=== PATIENT | female | born 1940 | race Caucasian/White ===

== ENCOUNTER 2021-08-25 15:28 | Inpatient (IN) | payer MEDICARE, SELFPAY ==
[2021-08-25 15:50] VITALS: BMI 41.0; BMI 41.7
[2021-08-25 16:00] VITALS: BP 173/82; RESP 22; TEMP 36.8; O2SAT 91; O2SAT 96
--- NOTE | 2021-08-25 16:24 | XR_ITS ---
PROCEDURE INFORMATION: Exam: XR Chest Exam date and time: 08/25/2021 4:50 PM Age: 81 years old Clinical indication: Condition or disease; Prior surgery; Surgery date: 6+ months; Surgery type: Open heart SX in 2007; Patient HX: PT diagnosed with covid today; Additional info: Cp TECHNIQUE: Imaging protocol: Radiologic exam of the chest. Views: 1 view. COMPARISON: No relevant prior studies available. FINDINGS: Lungs: Mild peribronchial thickening demonstrated at the left lung base. Findings compatible with left lower lobe bronchitis. Patchy right greater than left bibasilar infiltrates. Pleural spaces: Unremarkable. No pleural effusion. No pneumothorax. Heart/Mediastinum: Unremarkable. No cardiomegaly. Bones/joints: Unremarkable. IMPRESSION: 1. Patchy right greater than left bibasilar infiltrates. 2. Findings compatible with left lower lobe bronchitis.
--- NOTE | 2021-08-25 16:36 | P.CONPHA_ITS ---
[facility] Pharmacy Heparin Dosing - Demographic Data Admission date:: 08/25/21 Date: 08/25/21 Time: 16:36 Allergies/Adverse Reactions: Allergies Allergy/AdvReac Type Severity Reaction Status Date / Time linezolid [From Zyvox] Allergy Verified 08/25/21 15:56 Penicillins Allergy Verified 08/25/21 15:56 Height: 1.63 m Weight: 110.223 kg - Indication Medication therapy:: Heparin Patient Problems: Current Active Problems Non-STEMI (non-ST elevated myocardial infarction) (Acute) COVID-19 (Acute) CHF (congestive heart failure) (Acute) Obesity (Acute) Diabetes (Acute) CVA?: No Bleeding problem?: No Kidney disease?: No DE?: Yes Desired PTT range:: 50-70 seconds - Monitoring Dose Monitor 1 Date: 08/25/21 Time: 16:37 PTT Result:: PTT 56.7 Infusion Rate:: STARTING AT 1000 UNITS/HR. IV DRIP ALREADY RUNNING FROM [facility]. NO BOLUS GIVEN UNTIL PTT COMES BACK. Dose Monitor 2 Date: 08/25/21 Time: 19:20 PTT Result:: PTT 46.8 Infusion Rate:: HEPARIN 3000 UNIT BOLUS GIVEN AND DOSE INCREASED TO 1200 UNITS/HR. Dose Monitor 3 Date: 08/26/21 Time: 02:05 PTT Result:: PTT 99.0 Infusion Rate:: DOSE DECREASED TO 900 UNITS/HR. Comment:: DRIP STOPPED AT 0404 DUE TO GI BLEED. - Core Measures Is INR > or = 2 at discharge?: No Most Recent Labs:: D Were Heparin and Warfarin started on the same day?: No
[2021-08-25 16:52] LABS: Influenza A, PCR Not Detected (NotDetected); Influenza B, PCR Not Detected (NotDetected)
[2021-08-25 16:57] LABS: Basophils % 0.8 % (0.1-2.0); Eosinophils % 0.1 % (0.1-12.0); Hematocrit 38.2 % (37.0-47.0); Lymphocytes # 0.3 K/mm3 (0.7-4.5); Mean Corpuscular HGB Conc 31.5 g/dL (31.8-35.4); Mean Corpuscular Hemoglobin 30.9 pg (27.0-31.2); Monocytes # 0.1 K/mm3 (0.1-1.0); Monocytes % 1.6 % (1.7-9.3); Neutrophils # 4.2 K/mm3 (1.8-7.8); Neutrophils % 91.4 % (37.0-80.0); Platelet Count 124 K/mm3 (142-424); Red Cell Distribution Width 15.3 % (11.5-17.5); White Blood Count 4.6 K/mm3 (4.8-10.8)
[2021-08-25 17:04] LABS: MANUAL DIFFERENTIAL MANUAL DIFFERENTIAL (MANUAL DIFF)
[2021-08-25 17:07] LABS: Chloride 106 mmol/L (98-107); Potassium 4.6 mmoL/L (3.5-5.1); Sodium 138 mmol/L (136-145)
[2021-08-25 17:10] LABS: Alanine Aminotransferase 22 U/L (12-78); Alkaline Phosphatase 67 U/L (38-126); Aspartate Amino Transferase 34 U/L (14-36); Bilirubin,Total 0.4 mg/dl (0.2-1.3); Blood Urea Nitrogen 23 mg/dl (7-17); Creatinine Clearance Estimated 31 mL/min (50-200); Estimated Glomerular Filt Rate 43 ml/min (>60); GFR (African American) 52 ML/MIN (>60); INR 1.05 (0.9-1.1); Lactic Acid 1.6 mmol/L (0.7-2.1); PTT Heparin (inpatient only) 56.7 Seconds (23.6-34.0); Prothrombin Time 11.8 seconds (10.1-12.5); Total Protein,Serum 7.1 g/dl (6.3-8.2)
[2021-08-25 17:11] LABS: Calcium 9.2 mg/dl (8.4-10.2); Glucose 225 mg/dl (74-100)
[2021-08-25 17:32] LABS: Troponin I 0.59 ng/ml (0.00-0.034)
--- NOTE | 2021-08-25 17:33 | PC.NURSE ---
1732-notified of critical troponin. verified name, and room number 1733- notified MD Gonzalez, make pt NPO after midnight. And notify him if pt experiences any further chest pain.
[2021-08-25 17:40] LABS: Coronavirus 19, PCR Detected (NotDetected)
--- NOTE | 2021-08-25 17:40 | PC.NURSE ---
Spoke to night watch regarding pt's PTT level for Heparin gtt. No changes.
[2021-08-25 17:44] LABS: Lymphocytes % 9 % (10-50); Monocytes % 1 % (2-9); Neutrophils % 90 % (42-76); Platelet Estimate Normal; RBC Morphology Normal; Total Cells Counted 100
--- NOTE | 2021-08-25 17:49 | ECG_ITS ---
APPROVED REPORT Exam: Resting ECG HR:83 bpm ECG Measurements Heart Rate 83 AXES CO 185 P 55 QRSd 176 QRS -66 QT 403 T 94 QTc 443 Conclusion SINUS RHYTHM LEFT AXIS DEVIATION [QRS AXIS < -30] LEFT BUNDLE BRANCH BLOCK [120+ ms QRS DURATION, 80+ ms Q/S IN V1/V2, 85+ ms R IN I/aVL/V5/V6] ABNORMAL ECG UNCONFIRMED REPORT Electronically signed by : Ramón Hanson MD 08/27/2021 16:27:15
[2021-08-25 17:54] LABS: Albumin Level 3.8 g/dl (3.5-5.0); Albumin/Globulin Ratio 1.2 (1.1-1.8); Anion Gap 11.6 mEq/L (5-15); Carbon Dioxide 25 mmol/L (22.0-30.0); Globulin 3.3 g/dL (1.3-3.2)
[2021-08-25 18:00] VITALS: BP 140/63; RESP 22; O2SAT 91
[2021-08-25 19:41] LABS: PTT Heparin (inpatient only) 46.8 Seconds (23.6-34.0)
[2021-08-25 20:00] VITALS: BP 136/61; PULSE 89; PULSE 90; PULSE 93; RESP 20; TEMP 36.8; O2SAT 90; O2SAT 95
--- NOTE | 2021-08-25 20:20 | HMH.PHAINT ---
pharmacy nightwatch called with ptt result of 46.8; note orders received from alpa to give 3000 unit bolus and resume drip at 24ml/hr verifed with another RN, ptt to be rechecked in 6 hrs.
[2021-08-25 20:35] LABS: Troponin I 0.67 ng/ml (0.00-0.034)
--- NOTE | 2021-08-25 20:40 | PC.NURSE ---
dr lr called with troponin level 0.67; no new orders noted, stated to discontinue anymore troponin levels repeated and verified, lab notified as well.
[2021-08-25 22:00] VITALS: BP 138/61; PULSE 87; RESP 20; O2SAT 90
--- NOTE | 2021-08-25 22:30 | PC.NURSE ---
dr lr called for patient complaints of nausea and chronic back pain, pt states she takes oxycodone at home and asked that I call the doctor to get it ordered, dr lr states may resume home meds repeated and verified. may resume oxycodone 5mg at hs, may give zofran 4mg iv q6hrs prn nausea repeated and verified.
[2021-08-26] VITALS (14 sets, daily range): BP systolic 115–140; BP diastolic 43–63; PULSE 78–99; RESP 17–35; TEMP 36.7–36.9; O2SAT 92–97; BMI 40.1
--- NOTE | 2021-08-26 02:54 | HMH.PHAINT ---
0254 alpa with pharmacy nightwatch called with PTT results 99.0; note new orders to decrease heparin drip to 18ml/hr verified with another RN, see mar; repeat PTT in 6 hours.
--- NOTE | 2021-08-26 03:46 | PC.NURSE ---
0346 pt was up to bathroom with assistance of patient acute care occupational therapist and it was noted that pt had toilet full of bright red to red/brown blood in toilet with bowel movement, it was noted to be a moderate amount, dr rooney was notified in the emergency room and new order received to discontinue heparin drip at this time and he will notify dr. lr in the am repeated and verified.
--- NOTE | 2021-08-26 05:37 | PC.NURSE ---
pt rested some through the night, VSS, telemetry reveals sinus rythm with rate 79-89; 02 sats 96% on 02 at 3L; pt wears 2L at home; lung sounds clear and diminished, pt with h/o LIDIA lobectomy; pt had episode of br red to red/brown loose bowel movement and dr. Marcelo was notified, was a moderate amount, heparin drip stopped at this time. no complaints of chest pain with nitro drip infusing at 1.5mls/hr, pt a&o x4; VSS stable, no other issues or concerns at this time.
[2021-08-26 09:08] LABS: Basophils % 0.5 % (0.1-2.0); Eosinophils % 0.1 % (0.1-12.0); Hematocrit 36.5 % (37.0-47.0); Lymphocytes # 0.9 K/mm3 (0.7-4.5); Lymphocytes % 22.6 % (10-50); Mean Corpuscular HGB Conc 30.1 g/dL (31.8-35.4); Mean Corpuscular Hemoglobin 29.9 pg (27.0-31.2); Mean Corpuscular Volume 99.5 fl (81-99); Mean Platelet Volume 9.3 fl (7.4-10.4); Monocytes # 0.3 K/mm3 (0.1-1.0); Monocytes % 7.7 % (1.7-9.3); Neutrophils # 2.7 K/mm3 (1.8-7.8); Neutrophils % 69.1 % (37.0-80.0); Platelet Count 115 K/mm3 (142-424); Red Blood Count 3.67 M/mm3 (4.20-5.40); Red Cell Distribution Width 15.2 % (11.5-17.5); White Blood Count 3.8 K/mm3 (4.8-10.8)
[2021-08-26 09:11] LABS: PTT Heparin (inpatient only) 25.9 Seconds (23.6-34.0)
[2021-08-26 09:15] LABS: Alanine Aminotransferase 16 U/L (12-78); Albumin Level 3.1 g/dl (3.5-5.0); Albumin/Globulin Ratio 1.1 (1.1-1.8); Alkaline Phosphatase 51 U/L (38-126); Anion Gap 12.6 mEq/L (5-15); Aspartate Amino Transferase 28 U/L (14-36); Blood Urea Nitrogen 29 mg/dl (7-17); Calcium 8.6 mg/dl (8.4-10.2); Carbon Dioxide 22 mmol/L (22.0-30.0); Chloride 112 mmol/L (98-107); Creatinine Clearance Estimated 55 mL/min (50-200); Estimated Glomerular Filt Rate 39 ml/min (>60); GFR (African American) 47 ML/MIN (>60); Globulin 2.9 g/dL (1.3-3.2); Glucose 128 mg/dl (74-100); Potassium 4.6 mmoL/L (3.5-5.1); Sodium 142 mmol/L (136-145)
[2021-08-26 09:28] LABS: Bilirubin,Total < 0.1 mg/dl (0.2-1.3)
--- NOTE | 2021-08-26 09:31 | HMH.HP ---
*Admission Date: 08/25/21 *Chief complaint: sob *History of present illness: this patient had sob and cough over the last few days and presented to [facility] and was found to have covid-19 and nonstemi- pt with hx of cad s/p cabg in past and chf - pt has diabetes and has been compliant with meds - pt with sob and elevated card enz and element of chf plus covid-19 and was transfered to [facility] for care [facility] History I have reviewed the patient's past medical history: Yes Medical History: Reports:: Congestive Heart Failure, Diabetes Mellitus Type 2, Hyperlipidemia, Hypertension, Peripheral Vascular Disease *Have you ever received a pneumonia vaccine?: Yes *Have you received a flu vaccine this season?: Yes Other Medical History: Reports: Anemia, Arthritis, Cataracts, Glaucoma Other Surgeries: Yes: Cholecystectomy, Colonoscopy, EGD - *Social History Smoking Status: Former smoker Alcohol Intake: never *Occupational Status:: retired *Travel in the last 8 weeks: None Family Hx:: Unable to obtain Review of Systems - Review of Systems Review of systems:: pertinent systems reviewed and negative unless documented below - Constitutional Denies fever(s) - Eyes Denies change in vision - ENT Denies sore throat - *Cardiovascular Reports chest pain at rest, Reports shortness of breath - *Respiratory Reports cough, Reports shortness of breath, Denies coughing up blood - *Gastrointestinal Denies abdominal pain - *Genitourinary Denies painful urination, Denies blood in urine - *Musculoskeletal Denies joint pain - Integumentary/Breasts Denies rash - *Neurologic Denies localized weakness - Psychiatric Denies confusion Meds Home Medications Medication Instructions Recorded Confirmed Type Cholecalciferol (Vitamin D3) 5,000 unit PO DAILY 08/25/21 08/25/21 History [Vitamin D3] Furosemide [Furosemide 40MG tAB*] 40 mg PO DAILY 08/25/21 08/25/21 History Isosorbide Mononitrate [Imdur 60mg 60 mg PO DAILY 08/25/21 08/25/21 History ER tablet] Metformin HCl [Metformin 1000mg 1,000 mg PO DAILY 08/25/21 08/25/21 History Tablets] Oxycodone HCl [Oxycodone 5mg tab 5 mg PO HS 08/25/21 08/25/21 History (IR)] Pantoprazole Sodium [Protonix 40mg 40 mg PO BID 08/25/21 08/25/21 History tablet] Sacubitril/Valsartan [Entresto 24 1 each PO BID 08/25/21 08/25/21 History mg-26 mg Tablet] Sitagliptin Phosphate [Januvia 100 mg PO DAILY 08/25/21 08/25/21 History 100mg tablet] carvediloL [Carvedilol 6.25mg Tab] 6.25 mg PO BID 08/25/21 08/25/21 History cilostazoL [Pletal 100mg tablet] 100 mg PO DAILY 08/25/21 08/25/21 History methocarbamoL [Methocarbamol] 750 mg PO BID 08/25/21 08/25/21 History Allergies Allergy/AdvReac Type Severity Reaction Status Date / Time linezolid [From Zyvox] Allergy Verified 08/25/21 15:56 Penicillins Allergy Verified 08/25/21 15:56 Exam Vital signs and Labs for Last 24 Hours: Temp Pulse Resp BP Pulse Ox 98.1 F 81 25 H 138/54 L 96 08/26/21 08:00 08/26/21 08:00 08/26/21 08:00 08/26/21 08:00 08/26/21 08:00 Laboratory Results - last 24 hr 08/25/21 16:35: WBC 4.6 L, RBC 3.90 L, Hgb 12.0 L, Hct 38.2, MCV 98.0, MCH 30.9, MCHC 31.5 L, RDW 15.3, Plt Count 124 L, MPV 10.0, Neut % (Auto) 91.4 H, Lymph % (Auto) 6.0 L, [place] % (Auto) 1.6 L, Eos % (Auto) 0.1, Baso % (Auto) 0.8, Neut # (Auto) 4.2, Lymph # (Auto) 0.3 L, [place] # (Auto) 0.1, Eos # (Auto) 0.0, Baso # (Auto) 0.0, Total Counted 100, Neutrophils % (Manual) 90 H, Lymphocytes % (Manual) 9 L, Monocytes % (Manual) 1 L, Platelet Estimate Normal, RBC Morphology Normal 08/25/21 16:35: PT 11.8, INR 1.05, APTT 56.7 H* 08/25/21 16:35: Sodium 138, Potassium 4.6, Chloride 106, Carbon Dioxide 25, Anion Gap 11.6, BUN 23 H, Creatinine 1.20 H, Estimated Creat Clear 31, Estimated GFR 43 L, Est GFR ( Amer) 52 L, Glucose 225 H, Calcium 9.2, Total Bilirubin 0.4, AST 34, ALT 22, Alkaline Phosphatase 67, Troponin I 0.59 H, Total Pro
--- NOTE | 2021-08-26 09:42 | XR_ITS ---
PROCEDURE INFORMATION: Exam: XR Chest Exam date and time: 08/26/2021 9:59 AM Age: 81 years old Clinical indication: Shortness of breath; Additional info: Sob/covid-19/chf TECHNIQUE: Imaging protocol: Radiologic exam of the chest. Views: 1 view. COMPARISON: CR XR CHEST PORTABLE 08/25/2021 4:50 PM FINDINGS: Lungs: Persistent patchy infiltrative opacities greatest at the right lung base. Findings not significantly changed. Pleural spaces: Unremarkable. No pleural effusion. No pneumothorax. Heart/Mediastinum: Unremarkable. No cardiomegaly. Bones/joints: Unremarkable. IMPRESSION: Patchy interstitial opacities greatest at the right lung base. No significant interval change.
[2021-08-26 10:15] LABS: NT Pro Brain Natriuretic Pep. 4460 pg/mL (0-450)
[2021-08-26 10:22] LABS: T4 (Thyroxine) 6.7 ug/dl (5.53-11.0)
[2021-08-26 10:36] LABS: Thyroid Stimulating Hormone 1.29 uIU/mL (0.465-4.68)
--- NOTE | 2021-08-26 11:00 | HMH.PHAINT ---
MEDICATION RECONCILIATION COMPLETE USING LIST FROM [facility].
--- NOTE | 2021-08-26 11:01 | P.CONPHA_ITS ---
[facility] Pharmacy VTE Monitoring - Patient Demographics Admission date: 08/25/21 Report Date: 08/26/21 Time: 11:01 Allergies/Adverse Reactions: Patient Allergies linezolid [From Zyvox] Allergy (Verified 08/25/21 15:56) Penicillins Allergy (Verified 08/25/21 15:56) Height: 1.63 m Weight: 106.736 kg Patient Problems: Current Active Problems Non-STEMI (non-ST elevated myocardial infarction) (Acute) COVID-19 (Acute) CHF (congestive heart failure) (Acute) Obesity (Acute) Diabetes (Acute) - VTE Risk Labs: VTE Related Lab Results Hgb 11.0 g/dL (12.2-16.2) L 08/26/21 08:33 Hct 36.5 % (37.0-47.0) L 08/26/21 08:33 Plt Count 115 K/mm3 (142-424) L 08/26/21 08:33 PT 11.8 seconds (10.1-12.5) 08/25/21 16:35 INR 1.05 (0.9-1.1) 08/25/21 16:35 APTT 25.9 Seconds (23.6-34.0) 08/26/21 08:33 BUN 29 mg/dl (7-17) H D 08/26/21 08:33 Creatinine 1.30 mg/dl (0.52-1.04) H 08/26/21 08:33 Estimated Creat Clear 55 mL/min (50-200) 08/26/21 08:33 Was VTE Risk Assessment Performed: Yes VTE Score: 9 VTE Risk Level: Moderate Risk Clinical Trial Participant: No - Prophylaxis VTE Prophylaxis Ordered?: Yes Types of VTE Prophylaxis: TEDS Knee High Location of Applied Device: Refused
[2021-08-26 11:24] LABS: POC Glucose,Bedside 138 (70-110)
--- NOTE | 2021-08-26 18:14 | PC.NURSE ---
pt pleasant t/o shift, up to chair at bedside all day. alert X4. iv in R ac dc due to infiltration. iv in R hand patent with dilt drip @ 5mg. assist X1 to br. pt has had 2 bloody BM this shift. vss, NSR with evidence of bbb noted on tele. lungs clear and diminished, productive cough with clear sputum at this time. pt stated shes getting nervous about possible procedure on mon. questions/ concerns addressed. no c/o n/v/cp at this time. call velasquez within reach.
[2021-08-27] VITALS (15 sets, daily range): BP systolic 97–152; BP diastolic 39–57; PULSE 69–94; RESP 18–31; TEMP 36.7–37.1; O2SAT 90–99; BMI 40.6
--- NOTE | 2021-08-27 04:15 | PC.NURSE ---
Pt is alert and oriented x4, pt has been resting throughout shift, pt has complained of pain one time, treated per mar. Pt ambulated to bathroom assist x1. Pt O2 sat >90% 3L NC. Nitro is infusing at 5mcg/min. HR has been 78-93. Tele has shown [place] throughout shift. SBP 120-156.
[2021-08-27 08:24] LABS: Alanine Aminotransferase 16 U/L (12-78); Albumin Level 3.2 g/dl (3.5-5.0); Albumin/Globulin Ratio 1.1 (1.1-1.8); Alkaline Phosphatase 46 U/L (38-126); Anion Gap 10.7 mEq/L (5-15); Aspartate Amino Transferase 36 U/L (14-36); Blood Urea Nitrogen 30 mg/dl (7-17); Calcium 8.3 mg/dl (8.4-10.2); Carbon Dioxide 25 mmol/L (22.0-30.0); Chloride 109 mmol/L (98-107); Creatinine Clearance Estimated 61 mL/min (50-200); Estimated Glomerular Filt Rate 43 ml/min (>60); GFR (African American) 52 ML/MIN (>60); Globulin 2.9 g/dL (1.3-3.2); Glucose 175 mg/dl (74-100); Potassium 4.7 mmoL/L (3.5-5.1); Sodium 140 mmol/L (136-145); Total Protein,Serum 6.1 g/dl (6.3-8.2)
[2021-08-27 08:26] LABS: Bilirubin,Total < 0.1 mg/dl (0.2-1.3)
--- NOTE | 2021-08-27 09:41 | P.PN_ITS ---
Internal Medicine - PN: Subj *Date: 08/28/21 *Time: 04:31 Interval history: doing ok with no chest pain - no bleeding Exam Vital signs and Labs for Last 24 Hours: Temp Pulse Resp BP Pulse Ox 98.7 F 94 H 18 129/51 L 96 08/27/21 04:00 08/27/21 08:00 08/27/21 08:00 08/27/21 08:00 08/27/21 08:00 Laboratory Results - last 24 hr 08/26/21 08:33: NT-Pro-B Natriuret Pep 4460 H, TSH 1.29, Thyroxine (T4) 6.7 08/26/21 11:13: POC Glucose 138 H 08/27/21 07:50: Sodium 140, Potassium 4.7, Chloride 109 H, Carbon Dioxide 25, Anion Gap 10.7, BUN 30 H, Creatinine 1.20 H, Estimated Creat Clear 61, Estimated GFR 43 L, Est GFR ( Amer) 52 L, Glucose 175 H D, Calcium 8.3 L, Total Bilirubin < 0.1 L, AST 36 D, ALT 16, Alkaline Phosphatase 46, Total Protein 6.1 L, Albumin 3.2 L, Globulin 2.9, Albumin/Globulin Ratio 1.1 I & O for Last 24 hours: Intake & Output 08/24/21 08/25/21 08/26/21 08/27/21 11:59 11:59 11:59 11:59 Intake Total 1090 / 1090 513 / 513 Output Total 0 / 0 Balance 1090 / 1090 513 / 513 Weight 235 lb 5 oz 238 lb 3 oz - Constitutional no acute distress, obese - *Routine HEENT Exam Head: Present: normocephalic Eye: Present: EOMI, PERRL ENT: Present: mucous membranes dry - *Routine Neck Exam Absent: JVD - *Routine Respiratory Exam Present: decreased breath sounds - *Routine Cardiovascular Exam Present: RRR, murmur, S4 - *Routine Abdominal Exam Present: soft - *Routine Extremities Exam Absent: calf tenderness - *Routine Skin Exam Present: intact - *Routine Neurological Exam Present: alert, CN II-XII intact - Routine Psychiatric Exam Present: cooperative Assessment and Plan (1) Non-STEMI (non-ST elevated myocardial infarction) Status: Acute Category: Medical Code(s): I21.4 - Non-ST elevation (NSTEMI) myocardial infarction (2) COVID-19 Status: Acute Category: Medical Code(s): U07.1 - COVID-19 (3) CHF (congestive heart failure) Status: Acute Qualifiers: Heart failure type: unspecified Heart failure chronicity: acute on chronic Qualified Code(s): I50.9 - Heart failure, unspecified Category: Medical Code(s): I50.9 - Heart failure, unspecified (4) Obesity Status: Acute Qualifiers: Obesity type: due to excess calories Obesity classification: adult class 3 (BMI >= 40) Serious obesity comorbidity presence: with serious comorbidity Body mass index: BMI 40.0-44.9 Qualified Code(s): E66.01 - Morbid (severe) ob esity due to excess calories; Z68.41 - Body mass index [BMI] 40.0-44.9, adult Category: Medical Code(s): E66.9 - Obesity, unspecified (5) Diabetes Status: Acute Qualifiers: Diabetes mellitus type: type 2 Diabetes mellitus termite control representative insulin use: unspecified termite control representative insulin use status Diabetes mellitus complication status: with other specified complication Qualified Code(s): E11.69 - Type 2 diabetes mellitus with other specified complication Category: Medical Code(s): E11.9 - Type 2 diabetes mellitus without complications
--- NOTE | 2021-08-27 11:30 | PC.NURSE ---
decreased pts O2 to 2L. sats now 99
--- NOTE | 2021-08-27 13:52 | PC.NURSE ---
Rounded on pt, cleaned and straightened room. Pt up in chair watching tv, ice water provided. No needs voiced.
--- NOTE | 2021-08-27 17:38 | PC.NURSE ---
pt has been pleasant this shift. alert X4. O2@ 2L, tolerating well, lungs diminished and clear. c/o lower abd/groin pain, relieved by pain med and walking in room,assist X1. iv in R hand with nitro 5mcg/min. pt has had regular BM with no evidence of blood this shift. pt NPO @ MN for heart cath in the am. call velasquez and personal items within reach, no other questions or concerns at this time.
[2021-08-27 20:54] LABS: POC Glucose,Bedside 139 (70-110)
[2021-08-28] VITALS (36 sets, daily range): BP systolic 101–170; BP diastolic 32–78; PULSE 41–87; RESP 15–28; TEMP 36.6–37.1; O2SAT 91–100; BMI 40.6
--- NOTE | 2021-08-28 | IR_ITS ---
APPROVED REPORT Patient Location: Outpatient[facility]patient PROCEDURES Left heart catheterization Left ventriculogram Selective coronary angiogram Selective engagement of the saphenous vein graft to the right coronary Selective engagement saphenous vein graft to the circumflex artery Left internal mammary angiography INDICATION Acute non-ST ovation myocardial infarction, Coronary artery disease, History of coronary bypass surgery Informed consent was obtained prior to the procedure. COMPLICATIONS None Estimated Blood Loss: Less than 10 ML TECHNIQUE One percent lidocaine used to anesthetize the right anterior aspect of the wrist. The right radial artery was accessed via the Seldinger technique. A 6 Bel[place]ian sheath was placed in the right radial artery. 2.5 mg of verapamil, 800 mcg of nitroglycerin, 1mg Lidocaine and 5000 U Heparin were given through the arterial sheath. The papa catheter was also used to perform left heart catheterization, left ventriculogram and selective coronary angiogram as well as selective engagement of the saphenous vein graft to the right coronary artery. 1% lidocaine was used anesthetize right groin the right femoral artery was accessed via Salinger technique and a 4 [place]ian sheath was placed in the right femoral artery. A JR4 catheter was used to perform selective angiography of the vein graft supplying the circumflex artery as well as nonselective left internal mammary angiography.. At the end of the procedure the radial sheath was removed good hemostasis was achieved using TR banding patient was transferred to postop putting in stable addition for femoral artery sheath removal ANGIOGRAPHIC RESULTS The left main artery Has an ostial eccentric 80% stenosis The left anterior descending artery Evidence of competitive flow from the left internal mammary artery. The LAD itself is patent The circumflex artery Ostially occluded The right coronary artery Is a dominant vessel and has diffuse proximal mid vessel 30% stenoses. The PEREZ ventriculogram reveals Dilated ventricle with severely reduced ejection fraction estimated 25 to 30% The left ventricular end-diastolic pressure 30 mmHg ANSARI to LAD widely patent Saphenous vein graft circumflex artery ostially occluded Saphenous to distal dominant right coronary widely patent IMPRESSION Coronary disease as described above Severely reduced left ventricular ejection fraction with elevated LVEDP PLAN 1. Treatment of systolic heart failure with standard therapy including carvedilol and Entresto 2. Diuresis 3. If patient has been on JARROD inhibitor's and ARB's combined with beta-blockers for greater than 3 months she should be evaluated for AICD with possible SOFT SHOE DANCER-D if eligible 4. Standard therapy for ischemic heart disease 5. Supportive care for COVID Electronically signed by : Darrius Gonzalez MD 08/28/2021 15:51:20
[2021-08-28 06:43] LABS: POC Glucose,Bedside 141 (70-110)
--- NOTE | 2021-08-28 10:17 | CA_ITS ---
APPROVED REPORT EXAM: Comprehensive 2D, Doppler, and color-flow Echocardiogram Non Profit Job Titles: Rosanne Navarro, RCS, RVS Ht: 5 ft 4 in Wt: 238lbs BSA: 2.11 BP: 120/70 mmHg Indications: COVID, NSTEMI, SOA, cad-CABG, chf ,PVD,OBESITY. EXSMOKER 2D Dimensions IVSd 1.20 cm F: 0.6-1.0 LVEF (Visual) 16.30 % PWd 1.01 cm F: 0.6 - 1.0 LA Volume 67.80 mL LVDd 7.36 cm F: 3.9 - 5.3 LA Volume Index 32.320707 mL/m2 (M/F) 16-34 LVDs 6.80 cm F: 2.2 - 3.5 Aortic Root 3.10 cm F: 2.7 - 3.3 Left Atrium 4.22 cm F: 2.7 - 3.8 LVOT 2.05 cm (M/F) 1.5-2.5 M-Mode Dimensions RVDd 1.97 cm (0.9-2.6) LA Diam 3.77 cm (1.9-4.0) LVDd 7.63 cm (3.5-5.7) Ao Diam 3.01 cm (2.0-3.7) LVDs 6.74 cm (3.5-5.7) IVSd 0.94 cm (0.6-1.1) PWd 1.03 cm (0.6-1.1) EF (Teich) 24.40% EPSs 2.78 cm FS 11.70% EDV (Teich) 310.00 mL TAPSE 1.75 (<1.7) ESV (Teich) 234.50 mL LV Diastology E Decel Time 247.00 (160-240 msec) E/A Ratio 0.62 MED E' 4.50 (< 7 cm/sec) MED A' 7.10 cm/s E'/MED E' Ratio 14.00 (>14) LAT E' 7.00 (<10 cm/sec) LAT A' 9.30 cm/s E/LAT E' Ratio 9.00 (>14) Aortic Valve LVOT Max 79.00 (70-110 cm/s) LVOT VTI 18.47 cm AoV Peak Tr. 124.00 (50-130 cm/s) AO Peak GR. 6.20 mmHg AO Mean GR. 3.00 (<5 mmHg) AO VTI 25.78 (18-25 cm) MAIN (VTI) 2.36 (2.5-4.5 cm2) Mitral Valve MV A Velocity 101.00 (40-130 cm/s) E/A Ratio 0.62 MV Decel. Time 247.00 (160-240 ms) Pulmonary Valve PV Peak Velocity 72.00 (50-150 cm/s) Tricuspid Valve TR P. Velocity 238.00 cm/s RAP Estimate 10.00 mmHg RVSP 32.60 mmHg Left Ventricle Left atrium is moderately enlarged, left ventricle is mildly dilated, severe left ventricular systolic dysfunction, visually estimated ejection fraction 20 to 25% left ventricle is globally hypokinetic. Grade 1 diastolic dysfunction seen without tissue Doppler evidence of raise left atrial pressure, endocardial surfaces are poorly visualized. Right Ventricle Right atrium and right ventricle are normal size and contractility. Aortic Valve Aortic valve is minimally thickened and calcified without aortic stenosis or aortic insufficiency. Mitral Valve Mitral valve is minimally thickened, there is mild rotation. Tricuspid Valve Tricuspid valve grossly normal, there is mild tricuspid regurgitation, tricuspid regurgitation jet velocity is inadequate for calculation of the right ventricular systolic pressure. Pulmonic Valve Pulmonic valve is poorly visualized. Great Vessels Aortic aortic root is normal size. Inferior vena cava is poorly visualized. Pericardium No significant pericardial effusion noted. Conclusion 1. Enlarged left atrium, dilated left ventricle, severe left ventricular systolic dysfunction, estimated ejection fraction 2024% left ventricle is globally hypokinetic, grade 1 diastolic dysfunction seen without tissue Doppler evidence of raise left atrial pressure. 2. Mitral and tricuspid regurgitation. 3. No significant pericardial effusion. 4. Inferior vena cava is poorly visualized. Electronically signed by : Bob Jackson MD 08/28/2021 17:49:32
--- NOTE | 2021-08-28 10:21 | HMH.CNCARD ---
History of Present Illness Consult date: 08/28/21 Requesting physician: Jeanmarie Marcelo Consult reason: shortness of breath Chief complaint: soa Additional Medical History:: Past medical hx: DM triple bypass 2007 obesity CHF former smoker, 2008 PVD History of present illness: 81 year old female with the above past medical hx presents to [facility] from [facility] for covid and nstemi. Patient reports she started to feel bad a few days ago with cough and worsening soa. Reports tried to get in to see pcp but was unable to so went to ER. Upon arrival tested positive for covid. EKG showed sinus tach with a rate of 109 and LBBB. Patient had elevated trops (198.1-334). Patient denies any chest pain, only complaint of soa and cough. Reports sees Dr. Sánchez in [place]. [facility] History Medical History: Reports:: Congestive Heart Failure, Diabetes Mellitus Type 2, Hyperlipidemia, Hypertension, Peripheral Vascular Disease *Have you ever received a pneumonia vaccine?: Yes *Have you received a flu vaccine this season?: Yes Other Medical History: Reports: Anemia, Arthritis, Cataracts, Glaucoma Other Surgeries: Yes: Cholecystectomy, Colonoscopy, EGD - *Social History Smoking Status: Former smoker Alcohol Intake: never *Occupational Status:: retired *Travel in the last 8 weeks: None Family Hx:: Unable to obtain Meds Home Medications Medication Instructions Recorded Confirmed Type Cholecalciferol (Vitamin D3) 5,000 unit PO DAILY 08/25/21 08/25/21 History [Vitamin D3] Furosemide [Furosemide 40MG tAB*] 40 mg PO DAILY 08/25/21 08/25/21 History Isosorbide Mononitrate [Imdur 60mg 60 mg PO DAILY 08/25/21 08/25/21 History ER tablet] Metformin HCl [Metformin 1000mg 1,000 mg PO BIDWMEAL 08/25/21 08/26/21 History Tablets] Oxycodone HCl [Oxycodone 5mg tab 5 mg PO HS 08/25/21 08/25/21 History (IR)] Pantoprazole Sodium [Protonix 40mg 40 mg PO BID 08/25/21 08/25/21 History tablet] Sacubitril/Valsartan [Entresto 24 1 tab PO DAILY 08/25/21 08/26/21 History mg-26 mg Tablet] Sitagliptin Phosphate [Januvia 100 mg PO DAILYDM 08/25/21 08/26/21 History 100mg tablet] carvediloL [Carvedilol 6.25mg Tab] 6.25 mg PO BID 08/25/21 08/25/21 History cilostazoL [Pletal 100mg tablet] 100 mg PO BID 08/25/21 08/26/21 History methocarbamoL [Methocarbamol] 750 mg PO BID 08/25/21 08/25/21 History Insulin Glargine,Hum.rec.anlog 35 units SQ BID 08/26/21 08/26/21 History [Lantus Insulin 100units/mL 10mL vial] Potassium Chloride 10 meq PO DAILY 08/26/21 08/26/21 History Allergies Allergy/AdvReac Type Severity Reaction Status Date / Time linezolid [From Zyvox] Allergy Verified 08/25/21 15:56 Penicillins Allergy Verified 08/25/21 15:56 Exam Vital signs and Labs for Last 24 Hours: Temp Pulse Resp BP Pulse Ox 98.7 F 77 20 117/47 L 97 08/28/21 08:00 08/28/21 08:00 08/28/21 08:00 08/28/21 08:00 08/28/21 08:00 Laboratory Results - last 24 hr 08/27/21 20:40: POC Glucose 139 H 08/28/21 06:33: POC Glucose 141 H I & O for Last 24 hours: Intake & Output 08/25/21 08/26/21 08/27/21 08/28/21 23:59 23:59 23:59 23:59 Intake Total 480 / 480 1107 / 1107 874 / 874 Output Total 0 / 0 0 / 0 Balance 480 / 480 1107 / 1107 874 / 874 0 / 0 Weight 243 lb 0.002 oz 235 lb 5 oz 238 lb 1.588 oz 238 lb 1 oz Microbiology Reports for the Last 24 Hours: Microbiology 08/25/21 16:35 Blood Blood Culture - Preliminary NO GROWTH AFTER 48 HOURS 08/25/21 16:35 Blood Blood Culture - Preliminary NO GROWTH AFTER 48 HOURS - Constitutional no acute distress - *Routine Respiratory Exam Present: decreased breath sounds, rhonchi - *Routine Cardiovascular Exam Present: tachycardia - *Routine Extremities Exam Present: edema. Absent: cyanosis, clubbing Review of Systems - *Respiratory Reports cough, Reports shortness of breath - *Neurologic De
[2021-08-28 15:58] LABS: CATHL Activated Clotting Time 226 SEC (74-125)
--- NOTE | 2021-08-28 16:26 | HMH.ACPN2 ---
Internal Medicine - PN: Subj *Date: 08/29/21 *Time: 06:25 Interval history: pt is doing ok on ntg drip - pt seen by card -cath this am Exam Vital signs and Labs for Last 24 Hours: Temp Pulse Resp BP Pulse Ox 98.7 F 41 L 18 164/61 H 100 08/28/21 08:00 08/28/21 16:25 08/28/21 16:25 08/28/21 16:25 08/28/21 16:25 Laboratory Results - last 24 hr 08/27/21 20:40: POC Glucose 139 H 08/28/21 06:33: POC Glucose 141 H 08/28/21 15:38: Activated Clotting Time 226 H* I & O for Last 24 hours: Intake & Output 08/26/21 08/27/21 08/28/21 08/29/21 11:59 11:59 11:59 11:59 Intake Total 1090 / 1090 873 / 873 498 / 498 Output Total 0 / 0 0 / 0 Balance 1090 / 1090 873 / 873 498 / 498 Weight 235 lb 5 oz 238 lb 3 oz 238 lb 1 oz Microbiology Reports for the Last 24 Hours: Microbiology 08/25/21 16:35 Blood Blood Culture - Preliminary NO GROWTH AFTER 48 HOURS 08/25/21 16:35 Blood Blood Culture - Preliminary NO GROWTH AFTER 48 HOURS - Constitutional no acute distress - *Routine HEENT Exam Head: Present: normocephalic Eye: Present: EOMI, PERRL ENT: Present: mucous membranes dry - *Routine Neck Exam Absent: JVD - *Routine Respiratory Exam Present: CTA bilaterally - *Routine Cardiovascular Exam Present: RRR - *Routine Abdominal Exam Present: soft - *Routine Extremities Exam Absent: calf tenderness - *Routine Skin Exam Present: intact - *Routine Neurological Exam Present: alert, CN II-XII intact - Routine Psychiatric Exam Present: cooperative Assessment and Plan (1) Non-STEMI (non-ST elevated myocardial infarction) Status: Acute Category: Medical Code(s): I21.4 - Non-ST elevation (NSTEMI) myocardial infarction (2) COVID-19 Status: Acute Category: Medical Code(s): U07.1 - COVID-19 (3) CHF (congestive heart failure) Status: Acute Qualifiers: Heart failure type: unspecified Heart failure chronicity: acute on chronic Qualified Code(s): I50.9 - Heart failure, unspecified Category: Medical Code(s): I50.9 - Heart failure, unspecified (4) Obesity Status: Acute Qualifiers: Obesity type: due to excess calories Obesity classification: adult class 3 (BMI >= 40) Serious obesity comorbidity presence: with serious comorbidity Body mass index: BMI 40.0-44.9 Qualified Code(s): E66.01 - Morbid (severe) obesity due to excess calories; Z68.41 - Body mass index [BMI] 40.0-44.9, adult Category: Medical Code(s): E66.9 - Obesity, unspecified (5) Diabetes Status: Acute Qualifiers: Diabetes mellitus type: type 2 Diabetes mellitus usp insulin use: 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
--- NOTE | 2021-08-28 17:58 | PC.NURSE ---
clarified with Stanislav Orona in bedside report, pt no longer needs nitro drip. [id number]
[2021-08-28 18:31] LABS: POC Glucose,Bedside 108 (70-110)
[2021-08-28 18:31] LABS: POC Glucose,Bedside 127 (70-110)
--- NOTE | 2021-08-28 20:45 | PC.NURSE ---
SRNA Grecia got pt up to bathroom and assisted pt in bathing, SRNA changed pt's sheets, and assisted pt back to side of bed to eat dinner
--- NOTE | 2021-08-28 21:26 | PC.NURSE ---
pt called and out stated I think I'm gonna pass out , pt was sitting up on side of bed eating her dinner, assisted pt back into bed, VSS, FSBS 109, no fever, pt stated feel hot , obtained fan and placed on pt, checked both pt's vascular sites and no drainage present, pupils perrla at 3mm, pt answered all orientation questions appropriately, pt anxious and fearful, informed pt she's being monitored at all times and her vs are and have been stable
--- NOTE | 2021-08-28 21:41 | PC.NURSE ---
checked on pt, gave pt protonix but held coreg (HR 62 and bp down to 119/47 @2130 from 141/50 @ 2110) and pain medication (didn't want anything to change her mental status since pt already feeling strange) at this time, pt feeling better and less anxious, pt stated fan really helped , pt sitting up in bed eating pudding, placed call velasquez beside pt's hand and instructed her to call if she needs anything at all
[2021-08-29] VITALS (15 sets, daily range): BP systolic 85–161; BP diastolic 33–75; PULSE 62–80; RESP 14–24; TEMP 36.5–36.8; O2SAT 91–97; BMI 40.7
--- NOTE | 2021-08-29 05:10 | PC.NURSE ---
pt's VSS throughout shift, pt c/o back pain and lower pelvic pain this shift, pt c/o nausea once, pt states whenever she gets OOB she doesn't feel right so staff has been assisting her to and from bathroom and staying with pt while uses bathroom, pt's cath site dressings are cdi, femoral site does seem to have hard area under dressing but no drainage, pt still has cough but seems better this shift vs last shift, lung sounds are clear to diminished, HR has been 50-70's throughout shift with bbb noted, pt remained on 2LNC this shift with oxygen saturations in 90's, pt had one bowel movement overnight and adequate UOP for shift
[2021-08-29 06:52] LABS: POC Glucose,Bedside 152 (70-110)
--- NOTE | 2021-08-29 09:54 | P.PN_ITS ---
Subjective Date: 08/29/21 Time: 08:00 Principal diagnosis: Nstemi, covid Interval history: Patient resting this am, states is feeling better. Denies chest pain. Reports soa and cough are improving. Status post Left heart cath yesterday. Report below: ANGIOGRAPHIC RESULTS The left main artery Has an ostial eccentric 80% stenosis The left anterior descending artery Evidence of competitive flow from the left internal mammary artery. The LAD itself is patent The circumflex artery Ostially occluded The right coronary artery Is a dominant vessel and has diffuse proximal mid vessel 30% stenoses. The PEREZ ventriculogram reveals Dilated ventricle with severely reduced ejection fraction estimated 25 to 30% The left ventricular end-diastolic pressure 30 mmHg ANSARI to LAD widely patent Saphenous vein graft circumflex artery ostially occluded Saphenous to distal dominant right coronary widely patent IMPRESSION Coronary disease as described above Severely reduced left ventricular ejection fraction with elevated LVEDP PLAN 1. Treatment of systolic heart failure with standard therapy including carvedilol and Entresto 2. Diuresis 3. If patient has been on JARROD inhibitor's and ARB's combined with beta-blockers for greater than 3 months she should be evaluated for AICD with possible FASHION DESIGNER-D if eligible 4. Standard therapy for ischemic heart disease 5. Supportive care for COVID Exam Vital signs and Labs for Last 24 Hours: Temp Pulse Resp BP Pulse Ox 97.7 F 65 15 109/44 L 95 08/29/21 08:00 08/29/21 08:00 08/29/21 08:00 08/29/21 08:00 08/29/21 08:00 Laboratory Results - last 24 hr 08/28/21 11:31: POC Glucose 108 08/28/21 15:38: Activated Clotting Time 226 H* 08/28/21 18:22: POC Glucose 127 H 08/29/21 06:41: POC Glucose 152 H I & O for Last 24 hours: Intake & Output 08/26/21 08/27/21 08/28/21 08/29/21 23:59 23:59 23:59 23:59 Intake Total 1107 / 1107 874 / 874 10 / 10 Output Total 0 / 0 0 / 0 Balance 1107 / 1107 874 / 874 10 / 10 Weight 235 lb 5 oz 238 lb 1.588 oz 238 lb 1 oz 238 lb 11.2 oz - *Routine Respiratory Exam Present: rhonchi - *Routine Cardiovascular Exam Present: RRR - *Routine Extremities Exam Present: edema. Absent: cyanosis, clubbing Progress Note: A&P (1) Non-STEMI (non-ST elevated myocardial infarction) Status: Acute (2) COVID-19 Status: Acute (3) CHF (congestive heart failure) Status: Acute (4) Obesity Status: Acute (5) Diabetes Status: Acute Assessment and Plan for All Diagnoses:: NSTEMI -[facility] 08/29/2021- see above report for details, no new stents, EF 25-30, LVEDP 30 CAD - Continue Coreg. Start Aspirin, Xarelto 2.5mg, and Crestor 40mg. Imdur 60 Chronic systolic heart failure- -EF 25-30 -Continue entresto and BB. Add Jardiance and aldactone. Monitor labs. -Continue Lasix 40mg. -DC home in [facility]-will fit today Covid 19 -Per primary Med list: Lasix 40mg QD Imdur 60mg QD Metformin 1000mg QD Entresto / BID Coreg 6.25 BID Cilostazo 100mg QD. Aspirin 81mg xarelto 2.5mg Crestor 40mg Jardiance 10mg Aldactone 25mg CV summary: Chemistry ordered. Will fit today for [facility]. Starting new meds, should monitor for today, recommend DC home tomorrow
[2021-08-29 10:35] LABS: Chloride 106 mmol/L (98-107); Sodium 139 mmol/L (136-145)
[2021-08-29 10:36] LABS: Potassium 4.2 mmoL/L (3.5-5.1)
[2021-08-29 10:38] LABS: Alanine Aminotransferase 17 U/L (12-78); Alkaline Phosphatase 50 U/L (38-126); Aspartate Amino Transferase 29 U/L (14-36); Bilirubin,Total 0.2 mg/dl (0.2-1.3); Blood Urea Nitrogen 35 mg/dl (7-17); Creatinine Clearance Estimated 43 mL/min (50-200); Estimated Glomerular Filt Rate 29 ml/min (>60); GFR (African American) 35 ML/MIN (>60)
[2021-08-29 10:39] LABS: Albumin Level 3.4 g/dl (3.5-5.0); Albumin/Globulin Ratio 1.1 (1.1-1.8); Anion Gap 10.2 mEq/L (5-15); Calcium 8.6 mg/dl (8.4-10.2); Carbon Dioxide 27 mmol/L (22.0-30.0); Glucose 179 mg/dl (74-100); Total Protein,Serum 6.4 g/dl (6.3-8.2)
--- NOTE | 2021-08-29 11:10 | HMH.PTEV ---
Physical Therapy Evaluation Rehab PT IP Evaluation Start: 08/29/21 09:05 Freq: .once Status: Active Protocol: Document 08/29/21 11:06 CHEIKH (Rec: 08/29/21 11:10 CHEIKH [id number]) Subjective/History History History this patient had sob and cough over the last few days and presented to [facility] and was found to have covid-19 and nonstemi- pt with hx of cad s /p cabg in past and chf - pt has diabetes and has been compliant with meds - pt with sob and elevated card enz and element of chf plus covid-19 and was transfered to [facility] for care Subjective Subjective Pt c/o SOA w/ exertion Rehab PT IP Eval Objective Appearance Patient Behavior Appropriate,Cooperative Patient Orientation Place,Name,Birthday,Year Difficulty following instructions none Speech Pattern Appropriate Ambulation Patient Able to Ambulate Yes Ambulation Observation IP General Gait Pattern Observation Shuffling Step Ambulation Distance (feet) 10 Ambulation Assistive Device None Ambulation Ability Contact Guard/Hand Hold Balance Ability to Arise Able, uses arms to help Sitting Balance Steady, safe Standing Balance Steady, wide stance Dynamic Sitting Balance Ability Good Dynamic Standing Balance Ability Fair Transfers Chair Transfer Ability Supervision/Stand by,Contact Guard/Hand Hold Sit to Stand Chair Transfer Ability Supervision/Stand by,Contact Guard/Hand Hold Rehab PT IP prob,goals,plan Problems Date of Evaluation: 08/29/21 PT IP Problems Transfers,Gait,Balance,Self care,Safety Rehab Potential Rehab Potential Fair Equipment Needs Assistive Devices Rolling / Wheeled Walker Plan PT Intervention Plan Transfers,Gait,Balance,Self care,Safety,Therapeutic Exercise PT Plan Frequency BID Duration LOS Discharge Goals Bed Transfer Ability Supervision/Stand by,Contact Guard/Hand Hold Sit to Stand Chair Transfer Ability Supervision/Stand by,Contact Guard/Hand Hold Ambulation Assistive Device Rolling Walker Ambulation Distance (feet) 15 Discharge Plan PT Discharge Plan Pt will benefit from skilled
--- NOTE | 2021-08-29 11:15 | SW/DCPLANNER ---
Addendum entered by [facility] 09/01/21 15:01: Guillermina Rose stated that services will begin Saturday09/03/21. Addendum entered by [facility] 09/01/21 13:53: Due to no bed availability w/ COVID the plan for this patient is to discharge home today with home health services. Patient information/order has been faxed to Guillermina Rose. I will follow up with Guillermina once patient information/order is reviewed. Michael Santacruz will contact patient's daughter regarding discharge. Addendum entered by [facility] 08/29/21 13:56: Grecia erickson/ [facility] stated that she does not have any beds at this time and does not know when she will have a bed available. I have contacted multiple facilities that are not accepting COVID positive patient's at this time. I called and discussed situation with patient's daughter (Ina) and informed patient that only option may be to discharge home with assistance from family and home health services. Ina stated that she will need to discuss this with her sister and contact me back. Original Note: I spoke with this patient regarding plans once medically stable for discharge. Patient stated that she reside at home alone and family/neighbors check on her often. Patient stated that she feels as if placement would be her best options at time of discharge. PT/OT stated that patient could benefit from SNF level of care. I informed patient at this time the only facility accepting COVID positive patient's is [facility]. After a lengthy conversation with patient she is agreeable for to me fax her information. I will follow up with Grecia Street at [facility] once patient information is reviewed.
--- NOTE | 2021-08-29 12:26 | HMH.ACPN2 ---
Internal Medicine - PN: Subj *Date: 08/30/21 *Time: 04:29 Interval history: doing better but still with sob with min exertion - card note reviewed Exam Vital signs and Labs for Last 24 Hours: Temp Pulse Resp BP Pulse Ox 97.7 F 79 19 85/39 L 95 08/29/21 11:44 08/29/21 11:44 08/29/21 11:44 08/29/21 11:44 08/29/21 08:00 Laboratory Results - last 24 hr 08/28/21 11:31: POC Glucose 108 08/28/21 15:38: Activated Clotting Time 226 H* 08/28/21 18:22: POC Glucose 127 H 08/29/21 06:41: POC Glucose 152 H 08/29/21 10:23: Sodium 139, Potassium 4.2, Chloride 106, Carbon Dioxide 27, Anion Gap 10.2, BUN 35 H, Creatinine 1.70 H D, Estimated Creat Clear 43, Estimated GFR 29 L, Est GFR ( Amer) 35 L D, Glucose 179 H, Calcium 8.6, Total Bilirubin 0.2, AST 29, ALT 17, Alkaline Phosphatase 50, Total Protein 6.4, Albumin 3.4 L, Globulin 3.0, Albumin/Globulin Ratio 1.1 I & O for Last 24 hours: Intake & Output 08/27/21 08/28/21 08/29/21 08/30/21 11:59 11:59 11:59 11:59 Intake Total 873 / 873 498 / 498 10 Output Total 0 / 0 0 / 0 Balance 873 / 873 498 / 498 Weight 238 lb 3 oz 238 lb 1 oz 238 lb 11.2 oz - Constitutional no acute distress, obese - *Routine HEENT Exam Head: Present: normocephalic Eye: Present: EOMI, PERRL ENT: Present: mucous membranes dry - *Routine Neck Exam Present: JVD - *Routine Respiratory Exam Present: decreased breath sounds - *Routine Cardiovascular Exam Present: RRR, murmur, S4 - *Routine Abdominal Exam Present: soft - *Routine Extremities Exam Present: edema - *Routine Skin Exam Present: intact - *Routine Neurological Exam Present: alert, CN II-XII intact - Routine Psychiatric Exam Present: cooperative Assessment and Plan (1) Non-STEMI (non-ST elevated myocardial infarction) Status: Acute Category: Medical Code(s): I21.4 - Non-ST elevation (NSTEMI) myocardial infarction (2) COVID-19 Status: Acute Category: Medical Code(s): U07.1 - COVID-19 (3) CHF (congestive heart failure) Status: Acute Qualifiers: Heart failure type: unspecified Heart failure chronicity: acute on chronic Qualified Code(s): I50.9 - Heart failure, unspecified Category: Medical Code(s): I50.9 - Heart failure, unspecified (4) Obesity Status: Acute Qualifiers: Obesity type: due to excess calories Obesity classification: adult class 3 (BMI >= 40) Serious obesity comorbidity presence: with serious comorbidity Body mass index: BMI 40.0-44.9 Qualified Code(s): E66.01 - Morbid (severe) obesity due to excess calories; Z68.41 - Body mass index [BMI] 40.0-44.9, adult Category: Medical Code(s): E66.9 - Obesity, unspecified (5) Diabetes Status: Acute Qualifiers: Diabetes mellitus type: type 2 Diabetes mellitus halfway insulin use: unspecified 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
--- NOTE | 2021-08-29 18:27 | PC.NURSE ---
shift summary: Pt is COVID-19 +. Has been pleasant this shift. GCS 15. NSR with BBB on tele. Has been normotensive. O2 sat high 90s on 2L NC. C/o dyspnea when ambulating to bathroom. Has had 2 BMs this shift. Poor appetite. Has not eaten a complete meal today. Is a 1 assist to bathroom.
--- NOTE | 2021-08-29 20:25 | PC.NURSE ---
notifed MD Marcelo that pt went completely obtunded while on commode, staff had to lift pt to chair and then back to bed, pt was agonally breathing and unable to rouse or talk for several minutes, increased oxygen to 4LNC during episode but turned it back down to 2LNC after episode over and pt talking again, HR 63, bp 123/45, rr 24, O2 sats 94%, temp 98.0, fsbs 162; no new orders at this time; notified MD that pt had stated after episode that when takes entresto sometimes this happens, asked MD if wanted RN to hold pm dose of entresto, stated to go ahead and give the pm dose of entresto
[2021-08-29 20:41] LABS: POC Glucose,Bedside 207 (70-110)
[2021-08-29 20:41] LABS: POC Glucose,Bedside 168 (70-110)
[2021-08-29 20:41] LABS: POC Glucose,Bedside 162 (70-110)
--- NOTE | 2021-08-29 21:30 | PC.NURSE ---
pt is nauseous and dry heaving but it's mostly clear secretions coming up, sat pt up in bed, zofran given, and diet anai mist placed at bedside; pt states the room is still spinning when I open my eyes ; pt refused pravastatin, entresto, and coreg with night meds, pt states I keep telling everyone these meds are what's making me sick, I'm better without them , pt seems slightly confused with conversation at times but answers orientation questions appropriately
[2021-08-30] VITALS (18 sets, daily range): BP systolic 84–125; BP diastolic 30–57; PULSE 62–88; RESP 18–24; TEMP 36.9–37.1; O2SAT 91–98; BMI 40.7
[2021-08-30 05:18] LABS: POC Glucose,Bedside 157 (70-110)
--- NOTE | 2021-08-30 05:27 | PC.NURSE ---
pt rested most of shift, pt's VSS throughout shift, pt still has cough but seems to be getting better versus last shift, lung sounds are diminished, pt didn't complain of pain this shift, pt NSR with BBB on tele, emv 15 and perrla @ 3mm, short term memory improving, pt is no longer dizzy/feels the room spinning or nauseous; pt wanted RN to note that pt needs home med pletal 100mg restarted, pt states that if I have my pletal it helps my legs and I can walk better. If I take the entresto this morning and get dizzy again then I'll know that's what it is making me dizzy. I cannot take the statin though it makes me unable to walk too .
[2021-08-30 06:33] LABS: Basophils % 0.3 % (0.1-2.0); Eosinophils % 0.3 % (0.1-12.0); Hematocrit 24.1 % (37.0-47.0); Hemoglobin 7.7 g/dL (12.2-16.2); Lymphocytes # 1.4 K/mm3 (0.7-4.5); Lymphocytes % 34.5 % (10-50); Mean Corpuscular HGB Conc 31.8 g/dL (31.8-35.4); Mean Corpuscular Hemoglobin 29.7 pg (27.0-31.2); Mean Corpuscular Volume 93.4 fl (81-99); Mean Platelet Volume 8.6 fl (7.4-10.4); Monocytes # 0.2 K/mm3 (0.1-1.0); Monocytes % 4.7 % (1.7-9.3); Neutrophils # 2.5 K/mm3 (1.8-7.8); Neutrophils % 60.2 % (37.0-80.0); Platelet Count 110 K/mm3 (142-424); Red Blood Count 2.59 M/mm3 (4.20-5.40); Red Cell Distribution Width 15.1 % (11.5-17.5); White Blood Count 4.1 K/mm3 (4.8-10.8)
[2021-08-30 06:41] LABS: Anion Gap 10.4 mEq/L (5-15); Blood Urea Nitrogen 42 mg/dl (7-17); Calcium 7.9 mg/dl (8.4-10.2); Carbon Dioxide 27 mmol/L (22.0-30.0); Chloride 104 mmol/L (98-107); Creatinine Clearance Estimated 27 mL/min (50-200); Estimated Glomerular Filt Rate 17 ml/min (>60); GFR (African American) 20 ML/MIN (>60); Glucose 146 mg/dl (74-100); Potassium 4.4 mmoL/L (3.5-5.1); Sodium 137 mmol/L (136-145)
--- NOTE | 2021-08-30 08:48 | HMH.PNCARD ---
Subjective Date: 08/30/21 Time: 08:00 Principal diagnosis: Nstemi, covid Interval history: Patient resting, denies chest pain or soa. Reports dizziness, states room has been spinning. creatinine increased to 2.70. Hgb 7.7. Patient refused most of medications yesterday, refuses lifevest stating im 81, if its my time to go its my time to go. Exam Vital signs and Labs for Last 24 Hours: Temp Pulse Resp BP Pulse Ox 98.5 F 69 22 116/47 L 94 L 08/30/21 04:00 08/30/21 06:24 08/30/21 04:00 08/30/21 04:00 08/30/21 04:00 Laboratory Results - last 24 hr 08/29/21 10:23: Sodium 139, Potassium 4.2, Chloride 106, Carbon Dioxide 27, Anion Gap 10.2, BUN 35 H, Creatinine 1.70 H D, Estimated Creat Clear 43, Estimated GFR 29 L, Est GFR ( Amer) 35 L D, Glucose 179 H, Calcium 8.6, Total Bilirubin 0.2, AST 29, ALT 17, Alkaline Phosphatase 50, Total Protein 6.4, Albumin 3.4 L, Globulin 3.0, Albumin/Globulin Ratio 1.1 08/29/21 11:42: POC Glucose 168 H 08/29/21 16:58: POC Glucose 207 H 08/29/21 20:22: POC Glucose 162 H 08/30/21 05:00: POC Glucose 157 H 08/30/21 06:10: WBC 4.1 L, RBC 2.59 L, Hgb 7.7 L, Hct 24.1 L, MCV 93.4, MCH 29.7, MCHC 31.8, RDW 15.1, Plt Count 110 L, MPV 8.6, Neut % (Auto) 60.2, Lymph % (Auto) 34.5, [place] % (Auto) 4.7, Eos % (Auto) 0.3, Baso % (Auto) 0.3, Neut # (Auto) 2.5, Lymph # (Auto) 1.4, [place] # (Auto) 0.2, Eos # (Auto) 0.0, Baso # (Auto) 0.0 08/30/21 06:10: Sodium 137, Potassium 4.4, Chloride 104, Carbon Dioxide 27, Anion Gap 10.4, BUN 42 H, Creatinine 2.70 H D, Estimated Creat Clear 27, Estimated GFR 17 L*, Est GFR ( Amer) 20 L D, Glucose 146 H, Calcium 7.9 L I & O for Last 24 hours: Intake & Output 08/27/21 08/28/21 08/29/21 08/30/21 23:59 23:59 23:59 23:59 Intake Total 874 / 874 120 / 120 Output Total 0 / 0 0 / 0 Balance 874 / 874 120 / 120 Weight 238 lb 1.588 oz 238 lb 1 oz 238 lb 11.2 oz 238 lb 11.2 oz Progress Note: A&P (1) Non-STEMI (non-ST elevated myocardial infarction) Status: Acute (2) COVID-19 Status: Acute (3) CHF (congestive heart failure) Status: Acute (4) Obesity Status: Acute (5) Diabetes Status: Acute (6) CAD (coronary artery disease) Status: Acute Assessment and Plan for All Diagnoses:: NSTEMI -[facility] 08/29/2021- see above report for details, no new stents, EF 25-30, LVEDP 30 CAD - Continue Coreg, Aspirin, Crestor 40mg and Imdur 60. will stop xarelto due to low Hgb. Chronic systolic heart failure- -EF 25-30 -Continue entresto, BB, jardiance. Patient states she can only tolerate entresto once a day. -Hold Lasix and aldactone for now due to randi. -Lifevest- patient refuses Covid 19 -Per primary Acute renal failure -Creatinine up to 2.7 -Gentle rehydration. -hold lasix and aldactone for now. Anemia-denies bleeding -hgb down to 7.7 -transfusion per primary care team -dc xarelto. continue aspirin. -Montor for active bleed. Med list: Lasix 40mg QD-HOLD Imdur 60mg QD Metformin 1000mg QD Entresto 24/26 QD Coreg 6.25 BID Cilostazo 100mg QD. Aspirin 81mg xarelto 2.5mg-DC Crestor 40mg Jardiance 10mg Aldactone 25mg-HOLD CV summary: Patient refuses lifevest. RANDI and anemia. Transfuse. DC xarelto. Hold lasix and aldactone.
--- NOTE | 2021-08-30 08:52 | HMH.ACPN2 ---
Internal Medicine - PN: Subj *Date: 08/30/21 *Time: 12:36 Interval history: 81-year-old female patient sitting up in bed resting quietly with eyes open, she did she still reports some shortness of breath with activity also complaining of dizziness. Hemoglobin 7.7 we will transfuse 1 unit of packed red blood cells, creatinine up to 2.7 today cardiology adjusting medications Exam Vital signs and Labs for Last 24 Hours: Temp Pulse Resp BP Pulse Ox 98.5 F 69 22 116/47 L 94 L 08/30/21 04:00 08/30/21 06:24 08/30/21 04:00 08/30/21 04:00 08/30/21 04:00 Laboratory Results - last 24 hr 08/29/21 10:23: Sodium 139, Potassium 4.2, Chloride 106, Carbon Dioxide 27, Anion Gap 10.2, BUN 35 H, Creatinine 1.70 H D, Estimated Creat Clear 43, Estimated GFR 29 L, Est GFR ( Amer) 35 L D, Glucose 179 H, Calcium 8.6, Total Bilirubin 0.2, AST 29, ALT 17, Alkaline Phosphatase 50, Total Protein 6.4, Albumin 3.4 L, Globulin 3.0, Albumin/Globulin Ratio 1.1 08/29/21 11:42: POC Glucose 168 H 08/29/21 16:58: POC Glucose 207 H 08/29/21 20:22: POC Glucose 162 H 08/30/21 05:00: POC Glucose 157 H 08/30/21 06:10: WBC 4.1 L, RBC 2.59 L, Hgb 7.7 L, Hct 24.1 L, MCV 93.4, MCH 29.7, MCHC 31.8, RDW 15.1, Plt Count 110 L, MPV 8.6, Neut % (Auto) 60.2, Lymph % (Auto) 34.5, [place] % (Auto) 4.7, Eos % (Auto) 0.3, Baso % (Auto) 0.3, Neut # (Auto) 2.5, Lymph # (Auto) 1.4, [place] # (Auto) 0.2, Eos # (Auto) 0.0, Baso # (Auto) 0.0 08/30/21 06:10: Sodium 137, Potassium 4.4, Chloride 104, Carbon Dioxide 27, Anion Gap 10.4, BUN 42 H, Creatinine 2.70 H D, Estimated Creat Clear 27, Estimated GFR 17 L*, Est GFR ( Amer) 20 L D, Glucose 146 H, Calcium 7.9 L I & O for Last 24 hours: Intake & Output 08/27/21 08/28/21 08/29/21 08/30/21 23:59 23:59 23:59 23:59 Intake Total 874 / 874 120 / 120 Output Total 0 / 0 0 / 0 Balance 874 / 874 120 / 120 Weight 238 lb 1.588 oz 238 lb 1 oz 238 lb 11.2 oz 238 lb 11.2 oz - Constitutional no acute distress, chronically ill appearing - *Routine HEENT Exam Head: Present: normocephalic Eye: Present: EOMI ENT: Present: mucous membranes moist - *Routine Neck Exam Present: trachea midline. Absent: tracheal deviation - *Routine Respiratory Exam Present: rhonchi - *Routine Cardiovascular Exam Present: RRR - *Routine Abdominal Exam Present: soft, normoactive bowel sounds. Absent: tenderness, firm - *Routine Extremities Exam Present: full ROM, pulses intact. Absent: cyanosis, clubbing - *Routine Skin Exam Present: intact, dry. Absent: cyanosis, erythema - *Routine Neurological Exam Present: alert, oriented X3. Absent: motor deficit - Routine Psychiatric Exam Present: normal affect, normal thought process. Absent: visual hallucinations Assessment and Plan (1) Non-STEMI (non-ST elevated myocardial infarction) Status: Acute Category: Medical Code(s): I21.4 - Non-ST elevation (NSTEMI) myocardial infarction (2) COVID-19 Status: Acute Category: Medical Code(s): U07.1 - COVID-19 (3) CHF (congestive heart failure) Status: Acute Qualifiers: Heart failure type: unspecified Heart failure chronicity: acute on chronic Qualified Code(s): I50.9 - Heart failure, unspecified Category: Medical Code(s): I50.9 - Heart failure, unspecified (4) Obesity Status: Acute Qualifiers: Obesity type: due to excess calories Obesity classification: adult class 3 (BMI >= 40) Serious obesity comorbidity presence: with serious comorbidity Body mass index: BMI 40.0-44.9 Qualified Code(s): E66.01 - Morbid (severe) obesity due to excess calories; Z68.41 - Body mass index [BMI] 40.0-44.9, adult Category: Medical Code(s): E66.9 - Obesity, unspecified (5) Diabetes Status: Acute Qualifiers: Diabetes mellitus type: type 2 Diabetes mellitus senior living insulin use: unspecified emt intermediate insulin use status Diabetes mellitus complication status: with other spec
[2021-08-30 09:30] LABS: CATHL Activated Clotting Time 168 SEC (74-125)
[2021-08-30 12:29] LABS: POC Glucose,Bedside 109 (70-110)
[2021-08-30 12:29] LABS: POC Glucose,Bedside 213 (70-110)
--- NOTE | 2021-08-30 16:12 | PC.NURSE ---
at start of shift, pt noted to be mildly confused. as the day has progressed, mentation has improved. nad noted, lungs are clear. pt is currently receiving 1 unit PRBC r/t low h/h. pt complains of a cough that is bothering her. she was ordered to have a life vest but states that she doesn't feel well and doesn't want to have procedures to prolong her life (pacemaker) if she is going to feel so bad. pt states she feels selfish that she is contemplating being a DNR. advised pt that if she is concerned about what her children think/feel she should discuss it with them. pt currently tolerating blood well. post h/h to be ordered.
[2021-08-30 19:13] LABS: Hematocrit 28.1 % (37.0-47.0)
[2021-08-30 19:19] LABS: Hemoglobin 9.2 g/dL (12.2-16.2)
[2021-08-30 22:05] LABS: POC Glucose,Bedside 198 (70-110)
[2021-08-30 22:05] LABS: POC Glucose,Bedside 197 (70-110)
[2021-08-31] VITALS (9 sets, daily range): BP systolic 97–112; BP diastolic 38–52; PULSE 68–90; RESP 16–24; TEMP 36.6–37.2; O2SAT 90–96; BMI 40.3
[2021-08-31 06:18] LABS: Basophils % 0.4 % (0.1-2.0); Eosinophils % 0.4 % (0.1-12.0); Hematocrit 25.5 % (37.0-47.0); Hemoglobin 8.3 g/dL (12.2-16.2); Lymphocytes # 1.4 K/mm3 (0.7-4.5); Lymphocytes % 33.5 % (10-50); Mean Corpuscular HGB Conc 32.3 g/dL (31.8-35.4); Mean Corpuscular Volume 92.6 fl (81-99); Mean Platelet Volume 8.3 fl (7.4-10.4); Monocytes # 0.2 K/mm3 (0.1-1.0); Monocytes % 4.6 % (1.7-9.3); Neutrophils # 2.5 K/mm3 (1.8-7.8); Neutrophils % 61.1 % (37.0-80.0); Platelet Count 102 K/mm3 (142-424); Red Blood Count 2.75 M/mm3 (4.20-5.40); Red Cell Distribution Width 15.2 % (11.5-17.5); White Blood Count 4.1 K/mm3 (4.8-10.8)
[2021-08-31 06:28] LABS: Anion Gap 8.1 mEq/L (5-15); Blood Urea Nitrogen 41 mg/dl (7-17); Carbon Dioxide 27 mmol/L (22.0-30.0); Chloride 107 mmol/L (98-107); Creatinine Clearance Estimated 31 mL/min (50-200); Estimated Glomerular Filt Rate 20 ml/min (>60); GFR (African American) 25 ML/MIN (>60); Glucose 129 mg/dl (74-100); Potassium 4.1 mmoL/L (3.5-5.1); Sodium 138 mmol/L (136-145)
[2021-08-31 06:50] LABS: POC Glucose,Bedside 155 (70-110)
--- NOTE | 2021-08-31 07:07 | PC.NURSE ---
asked pt if wanted to get up to chair for breakfast, pt declined stated too tired
--- NOTE | 2021-08-31 08:20 | CA_ITS ---
FINAL REPORT CLINICAL HISTORY: hematoma post cath 08/28/21. DM, obesity, CAD, COVID+. FINDINGS: Spectral and Doppler waveform evaluations of the right groin was performed. Spectral analysis was performed. There is no evidence of pseudoaneurysm or fistula. There is a hematoma in the right groin measuring 3.3 x 1.8 cm. IMPRESSION: No evidence of pseudoaneurysm. Reviewed, Interpreted and Dictated by Shin Joseph III, MD Transcribed by Tahira Flores Authenticated and [facility]
--- NOTE | 2021-08-31 08:57 | HMH.ACPN2 ---
Internal Medicine - PN: Subj *Date: 08/31/21 *Time: 08:57 Interval history: 81-year-old female patient resting in bed quietly, she does report decreased range of motion with right lower extremity and some pain. Creatinine today 2.3 down from 2.7 yesterday. Hemoglobin this morning 8.3, was 7.7 yesterday received 1 unit of packed cells up to 9.2 post transfusion. She does report a GI bleed in the past with a history of diverticulitis. She is also reporting some lower abdominal tenderness which she reports having for several months. Exam Vital signs and Labs for Last 24 Hours: Temp Pulse Resp BP Pulse Ox 98.5 F 79 18 102/39 L 96 08/31/21 08:00 08/31/21 08:00 08/31/21 08:00 08/31/21 08:00 08/31/21 08:00 Laboratory Results - last 24 hr 08/28/21 16:09: Activated Clotting Time 168 H* D 08/28/21 20:54: POC Glucose 109 08/30/21 06:10: Blood Type Confirm A Positive 08/30/21 09:58: Blood Type A Positive, Antibody Screen Negative, Crossmatch (AHG) See Detail 08/30/21 12:16: POC Glucose 213 H 08/30/21 17:20: POC Glucose 198 H 08/30/21 19:00: Hgb 9.2 L D, Hct 28.1 L 08/30/21 21:48: POC Glucose 197 H 08/31/21 05:38: WBC 4.1 L, RBC 2.75 L, Hgb 8.3 L, Hct 25.5 L, MCV 92.6, MCH 30.0, MCHC 32.3, RDW 15.2, Plt Count 102 L, MPV 8.3, Neut % (Auto) 61.1, Lymph % (Auto) 33.5, [place] % (Auto) 4.6, Eos % (Auto) 0.4, Baso % (Auto) 0.4, Neut # (Auto) 2.5, Lymph # (Auto) 1.4, [place] # (Auto) 0.2, Eos # (Auto) 0.0, Baso # (Auto) 0.0 08/31/21 05:38: Sodium 138, Potassium 4.1, Chloride 107, Carbon Dioxide 27, Anion Gap 8.1, BUN 41 H, Creatinine 2.30 H, Estimated Creat Clear 31, Estimated GFR 20 L, Est GFR ( Amer) 25 L D, Glucose 129 H, Calcium 8.0 L 08/31/21 06:25: POC Glucose 155 H I & O for Last 24 hours: Intake & Output 08/28/21 08/29/21 08/30/21 08/31/21 23:59 23:59 23:59 23:59 Intake Total 120 / 120 1395 / 1395 Output Total 0 / 0 250 / 250 600 / 600 Balance 120 / 120 1145 / 1145 -600 / -600 Weight 238 lb 1 oz 238 lb 11.2 oz 238 lb 11.2 oz 236 lb 1 oz Microbiology Reports for the Last 24 Hours: Microbiology 08/25/21 16:35 Blood Blood Culture - Final NO GROWTH AFTER 5 DAYS 08/25/21 16:35 Blood Blood Culture - Final NO GROWTH AFTER 5 DAYS - Constitutional no acute distress - *Routine HEENT Exam Head: Present: normocephalic Eye: Present: EOMI ENT: Present: mucous membranes moist - *Routine Neck Exam Present: trachea midline. Absent: tracheal deviation - *Routine Respiratory Exam Present: CTA bilaterally. Absent: accessory muscle use - *Routine Cardiovascular Exam Present: RRR - *Routine Abdominal Exam Present: soft, normoactive bowel sounds. Absent: tenderness, firm - *Routine Extremities Exam Present: pulses intact. Absent: cyanosis, clubbing - *Routine Skin Exam Present: intact, dry. Absent: cyanosis, erythema - *Routine Neurological Exam Present: alert, oriented X3. Absent: motor deficit - Routine Psychiatric Exam Present: normal affect, normal thought process Assessment and Plan (1) Non-STEMI (non-ST elevated myocardial infarction) Status: Acute Category: Medical Code(s): I21.4 - Non-ST elevation (NSTEMI) myocardial infarction (2) COVID-19 Status: Acute Category: Medical Code(s): U07.1 - COVID-19 (3) CHF (congestive heart failure) Status: Acute Qualifiers: Heart failure type: unspecified Heart failure chronicity: acute on chronic Qualified Code(s): I50.9 - Heart failure, unspecified Category: Medical Code(s): I50.9 - Heart failure, unspecified (4) Obesity Status: Acute Qualifiers: Obesity type: due to excess calories Obesity classification: adult class 3 (BMI >= 40) Serious obesity comorbidity presence: with serious comorbidity Body mass index: BMI 40.0-44.9 Qualified Code(s): E66.01 - Morbid (severe) obesity due to excess calories; Z68.41 - Body mass
--- NOTE | 2021-08-31 08:59 | HMH.PNCARD ---
Subjective Date: 08/31/21 Time: 08:00 Principal diagnosis: Nstemi, covid Interval history: patient denies chest pain or soa. Dizziness has resolved. Reports pain to right groin this am with tingling to foot. Large hematoma noted. LE ultrasound ordered. Exam Vital signs and Labs for Last 24 Hours: Temp Pulse Resp BP Pulse Ox 98.5 F 79 18 102/39 L 96 08/31/21 08:00 08/31/21 08:00 08/31/21 08:00 08/31/21 08:00 08/31/21 08:00 Laboratory Results - last 24 hr 08/28/21 16:09: Activated Clotting Time 168 H* D 08/28/21 20:54: POC Glucose 109 08/30/21 06:10: Blood Type Confirm A Positive 08/30/21 09:58: Blood Type A Positive, Antibody Screen Negative, Crossmatch (AHG) See Detail 08/30/21 12:16: POC Glucose 213 H 08/30/21 17:20: POC Glucose 198 H 08/30/21 19:00: Hgb 9.2 L D, Hct 28.1 L 08/30/21 21:48: POC Glucose 197 H 08/31/21 05:38: WBC 4.1 L, RBC 2.75 L, Hgb 8.3 L, Hct 25.5 L, MCV 92.6, MCH 30.0, MCHC 32.3, RDW 15.2, Plt Count 102 L, MPV 8.3, Neut % (Auto) 61.1, Lymph % (Auto) 33.5, [place] % (Auto) 4.6, Eos % (Auto) 0.4, Baso % (Auto) 0.4, Neut # (Auto) 2.5, Lymph # (Auto) 1.4, [place] # (Auto) 0.2, Eos # (Auto) 0.0, Baso # (Auto) 0.0 08/31/21 05:38: Sodium 138, Potassium 4.1, Chloride 107, Carbon Dioxide 27, Anion Gap 8.1, BUN 41 H, Creatinine 2.30 H, Estimated Creat Clear 31, Estimated GFR 20 L, Est GFR ( Amer) 25 L D, Glucose 129 H, Calcium 8.0 L 08/31/21 06:25: POC Glucose 155 H I & O for Last 24 hours: Intake & Output 08/28/21 08/29/21 08/30/21 08/31/21 23:59 23:59 23:59 23:59 Intake Total 120 / 120 1395 / 1395 Output Total 0 / 0 250 / 250 600 / 600 Balance 120 / 120 1145 / 1145 -600 / -600 Weight 238 lb 1 oz 238 lb 11.2 oz 238 lb 11.2 oz 236 lb 1 oz Microbiology Reports for the Last 24 Hours: Microbiology 08/25/21 16:35 Blood Blood Culture - Final NO GROWTH AFTER 5 DAYS 08/25/21 16:35 Blood Blood Culture - Final NO GROWTH AFTER 5 DAYS - Constitutional no acute distress - *Routine Cardiovascular Exam Present: RRR - *Routine Extremities Exam Absent: cyanosis, clubbing, edema - *Routine Skin Exam Present: warm. Absent: rash Progress Note: A&P (1) Non-STEMI (non-ST elevated myocardial infarction) Status: Acute (2) COVID-19 Status: Acute (3) CHF (congestive heart failure) Status: Acute (4) Obesity Status: Acute (5) Diabetes Status: Acute (6) CAD (coronary artery disease) Status: Acute Assessment and Plan for All Diagnoses:: NSTEMI -[facility] 08/29/2021- see above report for details, no new stents, EF 25-30, LVEDP 30 CAD - Continue Coreg, Aspirin, Crestor 40mg and Imdur 60. will stop xarelto due to low Hgb. Chronic systolic heart failure- -EF 25-30 -Continue entresto, BB, jardiance. Patient states she can only tolerate entresto once a day. -Hold Lasix and aldactone for now due to kyle. -Lifevest- patient refuses Covid 19 -Per primary Acute renal failure -improving to 2.3 -Gentle rehydration. -Continue to hold lasix and aldactone for now. Anemia-denies bleeding -hgb improving to 8.3 from 7.7 s/p transfusion -dc xarelto. continue aspirin. -Montor for active bleed. Right Groin Hematoma -Ultrasound- negative for pseudoaneursym CV stable for dc from card standpoint. Please continue below medications. Continue to hold Lasix and aldactone until kidney function improves. Restart Lasix 40mg QD when kidney function is closer to baseline. We will consider aldactone again when we see her in office. Office follow up in 1 week. Lasix 40mg QD-HOLD Imdur 60mg QD Metformin 1000mg QD Entresto 24/ QD Coreg 6.25 BID Aspirin 81mg Crestor 40mg Jardiance 10mg
--- NOTE | 2021-08-31 09:02 | CT_ITS ---
FINAL REPORT CLINICAL HISTORY: Abd pain, poss gi bleed FINDINGS: Axial CT images of the abdomen and pelvis were obtained without intravenous contrast. Oral contrast was administered. Coronal reformatted images were also obtained.This study was performed with techniques to keep radiation doses as low as reasonably achievable (ALARA). Individualized dose reduction techniques using automated exposure control or adjustment of mA and/or kV according to the patient's size were employed. Abdomen: There is mild bibasilar atelectasis or scarring. There is a 3 mm nonobstructing left renal stone. The gallbladder surgically absent. The liver, spleen and pancreas have an unremarkable, unenhanced appearance. There is a 15 mm low-attenuation mass in each kidney which cannot be accurately characterized without contrast but may represent small cysts. No inflammatory process is identified. There is moderate vascular calcification. There is no evidence of oral contrast. Pelvis: The appendix is normal. Images of the pelvis reveal no evidence of ureteral dilation or ureteral stone. There is some edema or hemorrhage in the right inguinal region without focal fluid collection. IMPRESSION: No evidence of oral contrast leak. 15 mm low-attenuation mass in each kidney, may represent small cysts. Some edema or hemorrhage in the right inguinal region without focal fluid collection. Reviewed, Interpreted and Dictated by Shin Joseph III, MD Transcribed by Duyen Villa Authenticated and [facility]
--- NOTE | 2021-08-31 09:45 | PC.NURSE ---
pt drank oral contrast without difficulty. Rad notified
--- NOTE | 2021-08-31 11:17 | PC.NURSE ---
report given to Filomena Flores RN
[2021-08-31 12:30] LABS: Occult Blood,Stool Positive (Negative)
[2021-08-31 12:35] LABS: POC Glucose,Bedside 165 (70-110)
--- NOTE | 2021-08-31 12:52 | PC.NURSE ---
Addendum entered by Grecia Flores RN 08/31/21 17:08: CARDIOLOGY CALLED AND ASKED IF PT WAS STILL REFUSING LIFE VEST. AFTER TALKING WITH PT SHE STATED OF RIGHT NOW SHE JUST DID NOT THINK SHE WANTED IT BUT SHE WILL THINK ABOUT IT. CARDIOLOGY CALLED AND STATED SHE WOULD CALL BACK TONIGHT TO SEE IF PT WOULD RECONSIDER WEARING THE LIFE VEST. Original Note: PT IS RESTING IN BED. PT STATES SHE IS NOT FEELING WELL TODAY. PT STATES SHE IS TIRED OF BEING IN THE ROOM BY HERSELF. STAFF ASSIST PT UP TO THE BSC. STOOL COLLECTED AND SENT TO LAB. POSITIVE FOR OCCULT BLOOD. WILL CONTINUE TO MONITOR.
[2021-08-31 17:57] LABS: POC Glucose,Bedside 200 (70-110)
--- NOTE | 2021-08-31 21:49 | PC.NURSE ---
patient has been refusing life vest, education done at this time over life vest, reasons for it and overall concept of it. patient voiced an understanding and stated she felt like at her age if it was her time it was her time. at this time also discussed code status with the patient. asked patient if heart stopped did she want us to start chest compressions, acls drugs, electric shock, intubation and ventilator. patient stated she did not want this. she felt this would cause her a lot of pain to prolong/start life saving measures if her heart had stopped. educated that treatment would stay the same even with this decision, but in the case that her heart stopped we would not start the resuscitation process. she voiced an understanding and agreement of this, and DNR order placed. patient also called daughter and let her know of this decision. no further questions at this time. patient was given snack at this time and tolerating well.
[2021-08-31 21:52] LABS: POC Glucose,Bedside 154 (70-110)
[2021-09-01] VITALS: BP 99/44; PULSE 70; PULSE 72; RESP 18; TEMP 36.7; O2SAT 100
[2021-09-01 04:00] VITALS: BP 118/48; PULSE 60; PULSE 69; RESP 18; TEMP 36.7; O2SAT 97
--- NOTE | 2021-09-01 04:27 | PC.NURSE ---
patient has done well this shift. has seemed to be in good spirits. some tenderness in groin. no signs of bleeding at this time. no stools this shift. patient did well with standing and transferring to [facility]. patient was feeling stronger and able to move around better which made her happy. appetite has been good. no concerns or questions at this time.
[2021-09-01 04:57] VITALS: BMI 41.1
[2021-09-01 05:56] LABS: Basophils % 0.3 % (0.1-2.0); Eosinophils # 0.1 K/mm3 (0.0-0.4); Eosinophils % 1.5 % (0.1-12.0); Hematocrit 25.3 % (37.0-47.0); Hemoglobin 8.7 g/dL (12.2-16.2); Lymphocytes # 1.7 K/mm3 (0.7-4.5); Lymphocytes % 31.9 % (10-50); Mean Corpuscular HGB Conc 34.6 g/dL (31.8-35.4); Mean Corpuscular Hemoglobin 31.8 pg (27.0-31.2); Mean Platelet Volume 8.6 fl (7.4-10.4); Monocytes # 0.2 K/mm3 (0.1-1.0); Monocytes % 4.5 % (1.7-9.3); Neutrophils # 3.2 K/mm3 (1.8-7.8); Neutrophils % 61.7 % (37.0-80.0); Platelet Count 108 K/mm3 (142-424); Red Blood Count 2.75 M/mm3 (4.20-5.40); Red Cell Distribution Width 15.5 % (11.5-17.5); White Blood Count 5.2 K/mm3 (4.8-10.8)
[2021-09-01 07:03] LABS: Anion Gap 10.6 mEq/L (5-15); Blood Urea Nitrogen 43 mg/dl (7-17); Calcium 8.4 mg/dl (8.4-10.2); Carbon Dioxide 25 mmol/L (22.0-30.0); Chloride 110 mmol/L (98-107); Creatinine Clearance Estimated 19 mL/min (50-200); Estimated Glomerular Filt Rate 25 ml/min (>60); GFR (African American) 31 ML/MIN (>60); Glucose 170 mg/dl (74-100); Potassium 4.6 mmoL/L (3.5-5.1); Sodium 141 mmol/L (136-145)
[2021-09-01 08:00] VITALS: BP 137/53; PULSE 69; PULSE 77; RESP 23; TEMP 36.9; O2SAT 92; O2SAT 94
--- NOTE | 2021-09-01 09:02 | HMH.ACPN2 ---
Internal Medicine - PN: Subj *Date: 09/01/21 *Time: 09:02 Interval history: 81-year-old female patient sitting up on side of the bed, she denies any concerns/needs at present. Abdominal/pelvis CT yesterday was negative for any acute findings as well as arterial ultrasound of right lower extremity. She was able to lift her right lower extremity into the bed and denies any pain today. Exam Vital signs and Labs for Last 24 Hours: Temp Pulse Resp BP Pulse Ox 98.6 F 75 23 119/39 L 98 09/01/21 11:32 09/01/21 11:32 09/01/21 11:32 09/01/21 11:32 09/01/21 11:32 Laboratory Results - last 24 hr 08/31/21 12:16: POC Glucose 165 H 08/31/21 12:18: Stool Occult Blood Positive A 08/31/21 15:58: POC Glucose 200 H 08/31/21 21:24: POC Glucose 154 H 09/01/21 05:49: WBC 5.2 D, RBC 2.75 L, Hgb 8.7 L, Hct 25.3 L, MCV 92.0, MCH 31.8 H, MCHC 34.6, RDW 15.5, Plt Count 108 L, MPV 8.6, Neut % (Auto) 61.7, Lymph % (Auto) 31.9, [place] % (Auto) 4.5, Eos % (Auto) 1.5, Baso % (Auto) 0.3, Neut # (Auto) 3.2, Lymph # (Auto) 1.7, [place] # (Auto) 0.2, Eos # (Auto) 0.1, Baso # (Auto) 0.0 09/01/21 05:49: Sodium 141, Potassium 4.6, Chloride 110 H, Carbon Dioxide 25, Anion Gap 10.6, BUN 43 H, Creatinine 1.90 H, Estimated Creat Clear 19, Estimated GFR 25 L, Est GFR ( Amer) 31 L D, Glucose 170 H, Calcium 8.4 I & O for Last 24 hours: Intake & Output 08/29/21 08/30/21 08/31/21 09/01/21 23:59 23:59 23:59 23:59 Intake Total 120 / 120 1395 / 1395 480 / 480 240 / 240 Output Total 250 / 250 900 / 900 Balance 120 / 120 1145 / 1145 -420 / -420 240 / 240 Weight 238 lb 11.2 oz 238 lb 11.2 oz 236 lb 1 oz 241 lb 1.6 oz - Constitutional no acute distress, obese - *Routine HEENT Exam Head: Present: normocephalic Eye: Present: EOMI ENT: Present: mucous membranes moist - *Routine Neck Exam Present: trachea midline. Absent: tracheal deviation - *Routine Respiratory Exam Present: CTA bilaterally. Absent: accessory muscle use - *Routine Cardiovascular Exam Present: RRR - *Routine Abdominal Exam Present: soft, normoactive bowel sounds. Absent: tenderness, firm - *Routine Extremities Exam Present: full ROM, pulses intact. Absent: cyanosis, clubbing - *Routine Skin Exam Present: intact, dry. Absent: cyanosis, erythema - *Routine Neurological Exam Present: alert, oriented X3. Absent: motor deficit - Routine Psychiatric Exam Present: normal affect, normal thought process. Absent: auditory hallucinations Assessment and Plan (1) Non-STEMI (non-ST elevated myocardial infarction) Status: Acute Category: Medical Code(s): I21.4 - Non-ST elevation (NSTEMI) myocardial infarction (2) COVID-19 Status: Acute Category: Medical Code(s): U07.1 - COVID-19 (3) CHF (congestive heart failure) Status: Acute Qualifiers: Heart failure type: unspecified Heart failure chronicity: acute on chronic Qualified Code(s): I50.9 - Heart failure, unspecified Category: Medical Code(s): I50.9 - Heart failure, unspecified (4) Obesity Status: Acute Qualifiers: Obesity type: due to excess calories Obesity classification: adult class 3 (BMI >= 40) Serious obesity comorbidity presence: with serious comorbidity Body mass index: BMI 40.0-44.9 Qualified Code(s): E66.01 - Morbid (severe) obesity due to excess calories; Z68.41 - Body mass index [BMI] 40.0-44.9, adult Category: Medical Code(s): E66.9 - Obesity, unspecified (5) Diabetes Status: Acute Qualifiers: Diabetes mellitus type: type 2 Diabetes mellitus halfway insulin use: unspecified halfway insulin use status Diabetes mellitus complication status: with other specified complication Qualified Code(s): E11.69 - Type 2 diabetes mellitus with other specified complication Category: Medical Code(s): E11.9 - Type 2 diabetes mellitus without complications (6) CAD (coronary artery disease) Status: Acute Qualifiers: Coronary Disease-
--- NOTE | 2021-09-01 10:45 | PC.NURSE ---
I assumed care of the patient at this time
[2021-09-01 11:32] VITALS: BP 119/39; PULSE 75; RESP 23; TEMP 37; O2SAT 98
[2021-09-01 12:00] VITALS: PULSE 67
--- NOTE | 2021-09-01 13:42 | HMH.DCSUM ---
General - General Admission date:: 08/25/21 Discharge date: 09/01/21 HPI HPI: this patient had sob and cough over the last few days and presented to [facility] and was found to have covid-19 and nonstemi- pt with hx of cad s/p cabg in past and chf - pt has diabetes and has been compliant with meds - pt with sob and elevated card enz and element of chf plus covid-19 and was transfered to [facility] for care Hospital Course Hospital Course: this patient had sob and cough over the last few days and presented to [facility] and was found to have covid-19 and nonstemi- pt with hx of cad s/p cabg in past and chf - pt has diabetes and has been compliant with meds - pt with sob and elevated card enz and element of chf plus covid-19 and was transfered to [facility] for care 08/28/21 ECHO: Conclusion 1. Enlarged left atrium, dilated left ventricle, severe left ventricular systolic dysfunction, estimated ejection fraction 2024% left ventricle is globally hypokinetic, grade 1 diastolic dysfunction seen without tissue Doppler evidence of raise left atrial pressure. 2. Mitral and tricuspid regurgitation. 3. No significant pericardial effusion. 4. Inferior vena cava is poorly visualized. Electronically signed by : Bob Jackson MD 08/28/2021 cardiac catheterization: ANGIOGRAPHIC RESULTS The left main artery Has an ostial eccentric 80% stenosis The left anterior descending artery Evidence of competitive flow from the left internal mammary artery. The LAD itself is patent The circumflex artery Ostially occluded The right coronary artery Is a dominant vessel and has diffuse proximal mid vessel 30% stenoses. The PEREZ ventriculogram reveals Dilated ventricle with severely reduced ejection fraction estimated 25 to 30% The left ventricular end-diastolic pressure 30 mmHg ANSARI to LAD widely patent Saphenous vein graft circumflex artery ostially occluded Saphenous to distal dominant right coronary widely patent IMPRESSION Coronary disease as described above Severely reduced left ventricular ejection fraction with elevated LVEDP PLAN 1. Treatment of systolic heart failure with standard therapy including carvedilol and Entresto 2. Diuresis 3. If patient has been on JARROD inhibitor's and ARB's combined with beta-blockers for greater than 3 months she should be evaluated for AICD with possible [employer]ELOPER-D if eligible 4. Standard therapy for ischemic heart disease 5. Supportive care for COVID Electronically signed by : Darrius Gonzalez MD Cardiology has seen and recommended: Assessment and Plan for All Diagnoses:: NSTEMI -[facility] 08/29/2021- see above report for details, no new stents, EF 25-30, LVEDP 30 CAD - Continue Coreg, Aspirin, Crestor 40mg and Imdur 60. will stop xarelto due to low Hgb. Chronic systolic heart failure- -EF 25-30 -Continue entresto, BB, jardiance. Patient states she can only tolerate entresto once a day. -Hold Lasix and aldactone for now due to kyle. -Lifevest- patient refuses Covid 19 -Per primary Acute renal failure -improving to 2.3 -Gentle rehydration. -Continue to hold lasix and aldactone for now. Anemia-denies bleeding -hgb improving to 8.3 from 7.7 s/p transfusion -dc xarelto. continue aspirin. -Montor for active bleed. Right Groin Hematoma -Ultrasound- negative for pseudoaneursym CV stable for dc from card standpoint. Please continue below medications. Continue to hold Lasix and aldactone until kidney function improves. Restart Lasix 40mg QD when kidney function is closer to baseline. We will consider aldactone again when we see her in office. Office follow up in 1 week. Lasix 40mg QD-HOLD Imdur 60mg QD Metformin 1000mg QD Entresto 24/26 QD Coreg 6.25 BID Aspirin 81mg Crestor 40mg Jardiance 10mg 81-year-old female patient sitting up in bed resting quietly, current oxygenation 96% on 2 L per nasal cannula. She denies any chest pain or shortness of kalpana
--- NOTE | 2021-09-01 14:37 | HMH.PHAINT ---
DISCHARGE MEDICATION COUNSELING PROVIDED. DISCUSSED THE FOLLOWING: -HOLD THE LASIX UNTIL YOU FOLLOW UP WITH CARDIOLOGY NEXT WEEK -STOP TAKING THE CILOSTAZOL AND POTASSIUM SUPPLEMENT -START THE FOLLOWING: -ROSUVASTATIN (FOR CHOLESTEROL, TAKE DAILY, WATCH FOR MUSCLE PAIN/WEAKNESS, IF THIS HAPPENS TALK TO MD) -ASPIRIN (FOR HEART, TAKE DAILY, WATCH FOR BLEEDING/BRUISING PATIENT HAD NO QUESTIONS REGARDING NEW MEDICATIONS BUT EXPRESSED CONCERN THAT SHE WAS GOING HOME AND WOULD NOT BE ABLE TO CARE FOR HERSELF. I ADVISED HER HER NURSE (SUKHJINDER) WOULD COME IN TO DISCUSS POST-DISCHARGE SERVICES/APPOINTMENTS. CONCERNS WERE RELAYED TO SUKHJINDER.
[2021-09-01 16:00] VITALS: BP 106/45; PULSE 70; PULSE 84; RESP 28; TEMP 36.7; O2SAT 95
[2021-09-02 01:12] LABS: POC Glucose,Bedside 180 (70-110)
[2021-09-02 01:12] LABS: POC Glucose,Bedside 230 (70-110)
--- NOTE | 2021-09-04 14:27 | CARE MANAGER ---
Spoke with patient for post-discharge phone interview, she states that she doesn't need anything
== END 2021-09-01 17:20 | disposition home health service (06) | DRG 280 ==
PROVIDERS: Internal Medicine; Nurse Practitioner; Nurse Practitioner Family; Admitting Provider Emergency Medicine; PCP Emergency Medicine; Visit Provider Emergency Medicine
DX: I21.4 Non-ST elevation (NSTEMI) myocardial infarction (principal); I25.810 Atherosclerosis of coronary artery bypass graft(s) without angina pectoris; U07.1 COVID-19; I50.22 Chronic systolic (congestive) heart failure; N17.9 Acute kidney failure, unspecified; Z68.41 Body mass index [BMI] 40.0-44.9, adult; Z79.4 Long term (current) use of insulin; D64.9 Anemia, unspecified; I25.10 Atherosclerotic heart disease of native coronary artery without angina pectoris; E11.51 Type 2 diabetes mellitus with diabetic peripheral angiopathy without gangrene; E66.01 Morbid (severe) obesity due to excess calories
CPT/HCPCS: 36415; 71045; 74176; 80048; 80053; 82272; 82962; 83605; 83880; 84436; 84443; 84484; 85007; 85014; 85018; 85025; 85347; 85610; 85730; 86850; 87040; 93005; 93306; 93459; 93926; 97110; 97162; 97165; 97530; 97535; 99152; 99153; C1725; C1769; C9803; G0328; J1644; J2405; J2720; P9016; Q9967; U0003; U0005

== ENCOUNTER 2023-10-26 11:15 | Emergency (ER) | payer MEDICARE, SELFPAY ==
[2023-10-26] VITALS (18 sets, daily range): BP systolic 97–159; BP diastolic 24–111; PULSE 65–94; RESP 17–20; TEMP 36.6; O2SAT 93–97; BMI 44.0; BMI 44.2
--- NOTE | 2023-10-26 11:24 | XR_ITS ---
PROCEDURE INFORMATION: Exam: XR Right Knee Exam date and time: 10/26/2023 11:26 AM Age: 83 years old Clinical indication: Injury or trauma; Fall; Blunt trauma; Knee; Right TECHNIQUE: Imaging protocol: Radiologic exam of the right knee. Views: 3 views. COMPARISON: US CA ARTERIAL PSEUDO RT LOWER 08/31/2021 8:57 AM FINDINGS: Tubes, catheters and devices: Medial surgical clips. Bones/joints: Small joint effusion. There is no fracture, dislocation or subluxation. Soft tissues: Normal. Vasculature: Vascular calcifications. Vascular calcifications. IMPRESSION: No acute findings.
--- NOTE | 2023-10-26 11:24 | XR_ITS ---
PROCEDURE INFORMATION: Exam: XR Left Knee Exam date and time: 10/26/2023 11:26 AM Age: 83 years old Clinical indication: Injury or trauma; Fall; Blunt trauma; Knee; Left TECHNIQUE: Imaging protocol: Radiologic exam of the left knee. Views: 3 views. COMPARISON: No relevant prior studies available. FINDINGS: Bones/joints: Moderate medial joint space narrowing. Trace chondrocalcinosis of the menisci. No fracture, dislocation or subluxation. Small joint effusion. Soft tissues: Normal. Vasculature: Vascular calcifications. IMPRESSION: Arthritis and chondrocalcinosis without fracture.
--- NOTE | 2023-10-26 11:32 | PC.NURSE ---
RAD at BS
--- NOTE | 2023-10-26 13:11 | ED_ITS ---
Discharge Plan Disposition Patient Disposition: Home, Self-Care Chief Complaint: Fall Prescriptions Prescriptions: No Action furosemide 40 MG tablet 40 mg PO DAILY carvedilol 6.25 MG tablet 6.25 mg PO BID isosorbide mononitrate 60 MG tablet extended release 24 hr 60 mg PO DAILY methocarbamol 750 MG tablet 750 mg PO BID pantoprazole 40 MG tablet,delayed release (DR/EC) 40 mg PO BID metformin 1,000 MG tablet 1,000 mg PO BIDWMEAL sitagliptin phosphate 100 MG tablet 100 mg PO DAILYDM cholecalciferol (vitamin D3) 125 MCG tablet 5,000 unit PO DAILY sacubitril-valsartan 1 EACH tablet 1 tab PO DAILY oxycodone 5 MG tablet 5 mg PO HS insulin glargine 100 UNIT/ML solution 35 units SQ BID aspirin 81 MG tablet,delayed release (DR/EC) 81 mg PO DAILY 30 Days Qty: 30 0RF rosuvastatin 40 MG tablet 40 mg PO DAILY 30 Days Qty: 30 0RF Referrals Follow up/Referrals: Provider,Referral, MD [Primary Care Provider] - See instructions Clinical Impressions Clinical Impression: Fall, Acute knee pain, Declining functional status Print Language Print Language: Comoran Discharge ED Provider: Jonas Jerome General Adult HPI <Jonas Jerome MD - Last Filed: 10/26/23 15:08> General Chief complaint: Fall Stated complaint: fall in bathroom, leg pain, [facility] Time Seen by Provider: 10/26/23 12:00 Mode of Arrival: EMS Source of Information: Patient Limitations: No Limitations Description of Symptoms (Recalled from ER Triage Doc. by RN): pt presents to ED with c/o fall in bathroom this am. pt lives at [facility]. pt reports that she slid down the wall today and handed on her knees. pt reports bilateral knee pain. no pain anywhere else. History of Present Illness HPI narrative: Patient is a 83-year-old female with past medical history of end-stage heart failure on high oxygen requirements at baseline, obese with significant osteoarthritis and difficulty walking. She lives at [facility] with assisted living community walking with a rollator at baseline. Her leg gave out from under her today causing her to strike both of her knees. She grades her left amish on the way down the wall but did not strike her head on the floor. No neck pain, no headache. She has bilateral knee pain right greater than left. Denies other trauma. No other acute complaints at this time. Of note she was recently started on a new antidepressant which has made her shaky and she attr ibutes this fall to that. Related Data Home Medications ?Medication ?Instructions ?Recorded ?Confirmed carvedilol 6.25 mg tablet 6.25 mg PO BID High blood pressure 08/25/21 08/25/21 cholecalciferol (vitamin D3) 125 5,000 unit PO DAILY Supplement 08/25/21 08/25/21 mcg (5,000 unit) tablet furosemide 40 mg tablet 40 mg PO DAILY Fluid 08/25/21 08/25/21 isosorbide mononitrate 60 mg 60 mg PO DAILY Heart failure 08/25/21 08/25/21 tablet,extended release 24 hr metformin 1,000 mg tablet 1,000 mg PO BIDWMEAL Diabetes 08/25/21 08/26/21 methocarbamol 750 mg tablet 750 mg PO BID MUSCLE SPASMS 08/25/21 08/25/21 oxycodone 5 mg tablet 5 mg PO HS MODERATE TO SEVERE PAIN 08/25/21 08/25/21 pantoprazole 40 mg tablet,delayed 40 mg PO BID GERD 08/25/21 08/25/21 release sacubitril 24 mg-valsartan 26 mg 1 tab PO DAILY Heart failure 08/25/21 08/26/21 tablet sitagliptin phosphate 100 mg tablet 100 mg PO DAILYDM Diabetes 08/25/21 08/26/21 insulin glargine 100 unit/mL 35 units SQ BID Diabetes 08/26/21 08/26/21 subcutaneous solution Previous Rx's ?Medication ?Instructions ?Recorded aspirin 81 mg tablet,delayed 81 mg PO DAILY 30 days #30 tabs 09/01/21 release rosuvastatin 40 mg tablet 40 mg PO DAILY 30 days #30 tabs 09/01/21 Allergies Allergy/AdvReac Type Severity Reaction Status Date / Time linezolid [From Zyvox] Allergy Verified 08/25/21 15:56 Penicillins Allergy Verified 08/25/21 15:56 [facility] <Jonas Jerome MD - Last Filed: 10/26/23 15:08> [facility] Disclaimer: The information contained in this section may have been updated after the patient was seen, as this information can be updated by other users. Social History Smoking Status: Never smoker alcohol intake: never current occupational status: retired Travel in the last 8 weeks: None <Jonas Jerome MD - Last Filed: 10/26/23 15:08> ROS Obtained: Yes Systems reviewed as appropriate & no additional complaints except as documented Physical Exam <Jonas Jerome MD - Last Filed: 10/26/23 15:08> General General appearance: alert and in no apparent distress Head Head exam: atraumatic and normocephalic Eye Eye exam: Present PERRL and EOMI ENT ENT exam: Present mucous membranes moist Neck Neck exam: Present normal inspection and full ROM; Absent tenderness Chest Chest inspection: Present normal inspection and symmetric chest wall rise Respiratory Respiratory exam: Present normal lung sounds bilaterally; Absent respiratory distress Cardiovascular Cardiovascular exam: Present regular rate, normal rhythm and other (Significant pain and edema BLE, mid centeno down are wrapped) Abdominal Exam Abdominal exam: Present soft; Absent tenderness Extremities Exam Extremities exam: Present normal inspection and other (Extensor mechanism intact BLE, no hip tenderness, bilateral knee tenderness right greater than left) Neurological Exam Neurological exam: Present alert, oriented X3 and CN II-XII intact; Absent motor sensory deficit Psychiatric Psychiatric exam: Present normal affect Skin Skin exam: Present warm and dry Medical Decision Making <Jonas Jerome MD - Last Filed: 10/26/23 15:08> Hunter Inquiry Pt receiving controlled substance: No Vital Signs: 10/26/23 11:15 10/26/23 12:02 10/26/23 12:31 Temperature 97.8 F Temperature Source Oral Pulse Rate 65 68 Pulse Rate [Left Radial] 94 H Respiratory Rate 17 Blood Pressure 159/111 H 156/80 H Blood Pressure [Right Arm] 147/37 H Blood Pressure Mean Blood Pressure Mean [Right Arm] 73 Blood Pressure Source Blood Pressure Position 02 Sat by Pulse Oximetry 95 95 97 Oxygen Delivery Method Room Air Room Air Room Air Oxygen Flow Rate (LPM) 10/26/23 13:01 10/26/23 14:35 10/26/23 15:07 Temperature Temperature Source Pulse Rate 66 77 77 Pulse Rate [Left Radial] Respiratory Rate Blood Pressure 97/72 L 128/51 L 132/35 L Blood Pressure [Right Arm] Blood Pressure Mean Blood Pressure Mean [Right Arm] Blood Pressure Source Blood Pressure Position 02 Sat by Pulse Oximetry 95 96 94 L Oxygen Delivery Method Nasal Cannula Room Air Oxygen Flow Rate (LPM) 5 10/26/23 15:31 10/26/23 16:01 10/26/23 16:30 Temperature Temperature Source Pulse Rate 71 73 71 Pulse Rate [Left Radial] Respiratory Rate Blood Pressure 109/24 L 122/34 L 114/26 L Blood Pressure [Right Arm] Blood Pressure Mean Blood Pressure Mean [Right Arm] Blood Pressure Source Blood Pressure Position 02 Sat by Pulse Oximetry 97 96 96 Oxygen Delivery Method Room Air Room Air Room Air Oxygen Flow Rate (LPM) 10/26/23 17:01 10/26/23 17:10 10/26/23 18:00 Temperature Temperature Source Pulse Rate 76 73 71 Pulse Rate [Left Radial] Respiratory Rate Blood Pressure 100/30 L 124/45 L 122/47 L Blood Pressure [Right Arm] Blood Pressure Mean 64 Blood Pressure Mean [Right Arm] Blood Pressure Source Blood Pressure Position 02 Sat by Pulse Oximetry 97 97 96 Oxygen Delivery Method Room Air Room Air Room Air Oxygen Flow Rate (LPM) 10/26/23 18:30 10/26/23 19:48 Temperature Temperature Source Pulse Rate 66 69 Pulse Rate [Left Radial] Respiratory Rate 20 Blood Pressure 117/54 L 117/83 Blood Pressure [Right Arm] Blood Pressure Mean 70 Blood Pressure Mean [Right Arm] Blood Pressure Source Automatic Cuff Blood Pressure Position Sitting 02 Sat by Pulse Oximetry 97 96 Oxygen Delivery Method Room Air Room Air Oxygen Flow Rate (LPM) Orders (Tests/Meds): ED MEDICATIONS Discontinued Medications Generic Name Dose Route Start Last Admin Trade Name Juanq PRN Reason Stop Dose Admin Acetaminophen 1,000 mg 10/26/23 13:19 10/26/23 13:49 Acetaminophen 500mg Tab PO 10/26/23 13:20 1,000 mg ONCE ONE Administration Morphine Sulfate 15 mg 10/26/23 13:24 10/26/23 13:47 Morphine 15mg Extended Release Tab PO 10/26/23 13:25 15 mg ONCE ONE Administration Morphine Sulfate 15 mg 10/26/23 21:16 10/26/23 21:36 Morphine 15mg Extended Release Tab PO 10/26/23 21:17 15 mg ONCE ONE Administration Oxycodone HCl 5 mg 10/26/23 13:19 Oxycodone 5mg Immediate Release Tablet PO 10/26/23 13:20 ONCE ONE ORDERS Category Date Time Status CT head/brain wo con Stat Cat Scan 10/26/23 13:[address] knee RT wo con Stat Cat Scan 10/26/23 13:16 Completed Femur XR right 2 views [XR femur RT 2V] Stat Exams 10/26/23 13:29 Completed Knee XR right 3 views [XR knee RT 3V] Stat Exams 10/26/23 11:24 Completed XR knee LT 3V Stat Exams 10/26/23 11:24 Completed Medical Decision Narrative: In summary patient is a 83-year-old female past medical history described above who presents emergency department for evaluation of traumatic injury sustained in a fall. Patient is hemodynamically stable nontoxic-appearing upon arrival, afebrile. Based on history and physical exam limited trauma survey will be conducted with plain films of bilateral knees. Plain films of bilateral knees reviewed by me and have no acute fracture. Upon repeat evaluation patient was attempted to be ambulated and could not secondary to severe pain in her right knee. Noncontrasted CT scan of the head will be obtained rule out intracranial hemorrhage and CT of the right knee will be obtained to rule out occult fracture. Oral morphine and Tylenol be administered for pain control as she takes oral morphine at baseline and not has not had her dose today. Noncontrasted CT scan shows subcutaneous edema surrounding the right knee, consider cellulitis in the final read however given history and physical with trauma and no overlying redness or warmth I do not suspect infection at this time and further investigation or interventions with regards to this will be deferred. Nursing was attempting to contact hospice for inpatient management at time of transfer of care to the oncoming physician, Dr. Salazar. <Temo Salazar MD - Last Filed: 10/26/23 22:26> Vital Signs: 10/26/23 11:15 10/26/23 12:02 10/26/23 12:31 Temperature 97.8 F Temperature Source Oral Pulse Rate 65 68 Pulse Rate [Left Radial] 94 H Respiratory Rate 17 Blood Pressure 159/111 H 156/80 H Blood Pressure [Right Arm] 147/37 H Blood Pressure Mean Blood Pressure Mean [Right Arm] 73 Blood Pressure Source Blood Pressure Position 02 Sat by Pulse Oximetry 95 95 97 Oxygen Delivery Method Room Air Room Air Room Air Oxygen Flow Rate (LPM) 10/26/23 13:01 10/26/23 14:35 10/26/23 15:07 Temperature Temperature Source Pulse Rate 66 77 77 Pulse Rate [Left Radial] Respiratory Rate Blood Pressure 97/72 L 128/51 L 132/35 L Blood Pressure [Right Arm] Blood Pressure Mean Blood Pressure Mean [Right Arm] Blood Pressure Source Blood Pressure Position 02 Sat by Pulse Oximetry 95 96 94 L Oxygen Delivery Method Nasal Cannula Room Air Oxygen Flow Rate (LPM) 5 10/26/23 15:31 10/26/23 16:01 10/26/23 16:30 Temperature Temperature Source Pulse Rate 71 73 71 Pulse Rate [Left Radial] Respiratory Rate Blood Pressure 109/24 L 122/34 L 114/26 L Blood Pressure [Right Arm] Blood Pressure Mean Blood Pressure Mean [Right Arm] Blood Pressure Source Blood Pressure Position 02 Sat by Pulse Oximetry 97 96 96 Oxygen Delivery Method Room Air Room Air Room Air Oxygen Flow Rate (LPM) 10/26/23 17:01 10/26/23 17:10 10/26/23 18:00 Temperature Temperature Source Pulse Rate 76 73 71 Pulse Rate [Left Radial] Respiratory Rate Blood Pressure 100/30 L 124/45 L 122/47 L Blood Pressure [Right Arm] Blood Pressure Mean 64 Blood Pressure Mean [Right Arm] Blood Pressure Source Blood Pressure Position 02 Sat by Pulse Oximetry 97 97 96 Oxygen Delivery Method Room Air Room Air Room Air Oxygen Flow Rate (LPM) 10/26/23 18:30 10/26/23 19:48 Temperature Temperature Source Pulse Rate 66 69 Pulse Rate [Left Radial] Respiratory Rate 20 Blood Pressure 117/54 L 117/83 Blood Pressure [Right Arm] Blood Pressure Mean 70 Blood Pressure Mean [Right Arm] Blood Pressure Source Automatic Cuff Blood Pressure Position Sitting 02 Sat by Pulse Oximetry 97 96 Oxygen Delivery Method Room Air Room Air Oxygen Flow Rate (LPM) Orders (Tests/Meds): ED MEDICATIONS Discontinued Medications Generic Name Dose Route Start Last Admin Trade Name Freq PRN Reason Stop Dose Admin Acetaminophen 1,000 mg 10/26/23 13:19 10/26/23 13:49 Acetaminophen 500mg Tab PO 10/26/23 13:20 1,000 mg ONCE ONE Administration Morphine Sulfate 15 mg 10/26/23 13:24 10/26/23 13:47 Morphine 15mg Extended Release Tab PO 10/26/23 13:25 15 mg ONCE ONE Administration Morphine Sulfate 15 mg 10/26/23 21:16 09/14/24 21:36 Morphine 15mg Extended Release Tab PO 10/26/23 21:17 15 mg ONCE ONE Administration Oxycodone HCl 5 mg 10/26/23 13:19 Oxycodone 5mg Immediate Release Tablet PO 10/26/23 13:20 ONCE ONE ORDERS Category Date Time Status CT head/brain wo con Stat Cat Scan 10/26/23 13:[address] knee RT wo con Stat Cat Scan 10/26/23 13:16 Completed Femur XR right 2 views [XR femur RT 2V] Stat Exams 10/26/23 13:29 Completed Knee XR right 3 views [XR knee RT 3V] Stat Exams 10/26/23 11:24 Completed XR knee LT 3V Stat Exams 10/26/23 11:24 Completed Medical Decision Narrative: In summary patient is a 83-year-old female past medical history described above who presents emergency department for evaluation of traumatic injury sustained in a fall. Patient is hemodynamically stable nontoxic-appearing upon arrival, afebrile. Based on history and physical exam limited trauma survey will be conducted with plain films of bilateral knees. Plain films of bilateral knees reviewed by me and have no acute fracture. Upon repeat evaluation patient was attempted to be ambulated and could not secondary to severe pain in her right knee. Noncontrasted CT scan of the head will be obtained rule out intracranial hemorrhage and CT of the right knee will be obtained to rule out occult fracture. Oral morphine and Tylenol be administered for pain control as she takes oral morphine at baseline and not has not had her dose today. Noncontras diana CT scan shows subcutaneous edema surrounding the right knee, consider cellulitis in the final read however given history and physical with trauma and no overlying redness or warmth I do not suspect infection at this time and further investigation or interventions with regards to this will be deferred. Nursing was attempting to contact hospice for inpatient management at time of transfer of care to the oncoming physician, Dr. Salazar. Reassessment 1026 hospice and case management reviewed this patient's condition and status. Ultimately in conjunction with the patient's daughter the patient was sent back to [facility] they will be getting a hospital bed for the patient's room pain management will be per hospice patient remained stable and comfortable in the emergency department she was here many hours waiting on EMS transport. Ultimately she was discharged back to the assisted under the care of hospice. Critical Care <Jonas Jerome MD - Last Filed: 10/26/23 15:08> Critical Care Time Critical Care Time: No
--- NOTE | 2023-10-26 13:16 | CT_ITS ---
PROCEDURE INFORMATION: Exam: CT Right Lower Extremity, Knee Exam date and time: 10/26/2023 1:42 PM Age: 83 years old Clinical indication: Pain; Knee; Right; Additional info: Inability to bear weight TECHNIQUE: Imaging protocol: CT of the right lower extremity without contrast was performed. Exam focused on the knee. Radiation optimization: All CT scans at this facility use at least one of these dose optimization techniques: automated exposure control; mA and/or kV adjustment per patient size (includes targeted exams where dose is matched to clinical indication); or iterative reconstruction. COMPARISON: CR XR KNEE RT 3V 10/26/2023 11:26 AM FINDINGS: Bones/joints: There is a small right knee effusion. No evidence of a right knee fracture or destructive bone lesion. There is mild chronic bony sclerosis of the femoral condyles. Soft tissues: There is edema in the subcutaneous surrounding the right knee. No drainable fluid collection is identified. There is no gas in the soft tissues. Consider cellulitis. Vasculature: Calcified atherosclerotic plaques of the visualized portions of the femoral artery, popliteal artery and proximal tibial arteries. IMPRESSION: 1. Subcutaneous edema surrounding the right knee. Consider cellulitis. 2. Small right knee effusion and mild osteoarthritic change. 3. No evidence of an acute fracture or destructive bone lesion.
--- NOTE | 2023-10-26 13:16 | CT_ITS ---
PROCEDURE INFORMATION: Exam: CT Head Without Contrast Exam date and time: 10/26/2023 1:39 PM Age: 83 years old Clinical indication: Injury or trauma; Fall; Blunt trauma (contusions or hematomas) TECHNIQUE: Imaging protocol: Computed tomography of the head without contrast. Radiation optimization: All CT scans at this facility use at least one of these dose optimization techniques: automated exposure control; mA and/or kV adjustment per patient size (includes targeted exams where dose is matched to clinical indication); or iterative reconstruction. COMPARISON: No relevant prior studies available. FINDINGS: Brain: Moderate central and cortical atrophy. No intracranial hemorrhage. No midline shift. Large extra-axial fluid spaces posteriorly near the vertex. Consistent with subdural hygromas. Cerebral ventricles: No ventriculomegaly. Paranasal sinuses: Visualized sinuses are unremarkable. No fluid levels. Mastoid air cells: Visualized mastoid air cells are well aerated. Bones: Unremarkable. No acute fracture. Soft tissues: Unremarkable. IMPRESSION: No intracranial hemorrhage with chronic changes.
--- NOTE | 2023-10-26 13:18 | PC.NURSE ---
attempted to ambulate pt but was unable due to knee pain
--- NOTE | 2023-10-26 13:29 | XR_ITS ---
PROCEDURE INFORMATION: Exam: XR Right Femur Exam date and time: 10/26/2023 1:43 PM Age: 83 years old Clinical indication: Pain; Thigh; Right TECHNIQUE: Imaging protocol: Radiologic exam of the right femur. Views: 2 views. 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 No evidence of a right hip fracture. There is diffuse osteopenia of the right knee. No evidence of a right knee fracture. Soft tissues: Unremarkable. Vasculature: There are diffuse calcifications throughout the femoral artery and popliteal artery. IMPRESSION: Chronic degenerative changes of the hip and knee but no evidence of a right femur fracture.
--- NOTE | 2023-10-26 13:45 | PC.NURSE ---
PT returned to room from RAD
[2023-10-26] MEDS: MORPHINE 15MG EXTENDED RELEASE TAB 15 MG PO ×2 (13:47→21:36)
[2023-10-26] MEDS: ACETAMINOPHEN 500MG TAB 1000 MG PO (13:49)
--- NOTE | 2023-10-26 13:49 | PC.NURSE ---
RAD at BS
--- NOTE | 2023-10-26 14:09 | PC.NURSE ---
Magalis RODARTE called from [facility], I updated her on the pt status.
--- NOTE | 2023-10-26 14:36 | PC.NURSE ---
Rounded on pt. No needs voiced at this time. Visitor remains at BS
--- NOTE | 2023-10-26 15:06 | PC.NURSE ---
Addendum entered by Ranjith Barnard RN 10/26/23 15:14: spoke with call center personal, Leah, she states that she will call the field nurse and see about getting pt taken care of. Addendum entered by Ranjith Barnard RN 10/26/23 15:10: on phone with nurse now Original Note: [id number] attempted to make contact with production control planner hospice provider. no answer from this line.
--- NOTE | 2023-10-26 15:09 | PC.NURSE ---
currently on Hold with [facility] navigators
--- NOTE | 2023-10-26 15:40 | PC.NURSE ---
call from pedro at hospice states that she is unsure if pt can be placed on other side at [facility]. pedro with hospice states no bed at the hospice care center, she is going to call [facility] to see about a skilled bed
--- NOTE | 2023-10-26 16:27 | PC.NURSE ---
DENICE spoke with Tiesha from hospice. Pt is able to return to assisted living room last tonight. Tiesha reports that daughter will go sit with pt tonight, or they will hire a private sitter. Tiesha states that she goes off call at 1700, she states that the nurse that comes on will call back to close the loop of communication.
--- NOTE | 2023-10-26 18:49 | PC.NURSE ---
Hospice called and states the hospital bed has been delivered to count includes the [facility].
--- NOTE | 2023-10-26 18:57 | PC.NURSE ---
Report called to Rafaela Herrmann RN at [facility]
--- NOTE | 2023-10-26 23:00 | PC.NURSE ---
2215: Pt. complains of bilateral knee and ankle pain. Pt. medicated with Morphine extreneded release. Attempted to make patient more comfortable on the stretcher. Awaiting EMS to take patient back to [place].
--- NOTE | 2023-10-26 23:03 | PC.NURSE ---
2245: Pt. states she needs to have a BM and void. Pt. placed on a bedpan. Pt attempted to go on bedpan but patient was unsuccessful. Pt. is noted to have a decubitus ulcer and skin tear on right buttocks. ER providedr notified.
--- NOTE | 2023-10-26 23:57 | INFXCTL.NOTE ---
2345: awaiting EMS transport to [place]
[2023-10-27 00:23] VITALS: BP 131/47; PULSE 72; RESP 14; TEMP 36.7; O2SAT 98
--- NOTE | 2023-10-27 00:34 | PC.NURSE ---
0025:gave an updated reoprt to More RODARTE from [facility]. [facility] here to tranport patient back to [facility].
--- NOTE | 2023-10-27 00:36 | PC.NURSE ---
2300: Sacral boarder Mepilex applied to decubitus ulcer on right buttocks.
== END 2023-10-27 00:32 | disposition home or self-care (01) ==
PROVIDERS: Emergency Provider Emergency Medicine
DX: M25.561 Pain in right knee (principal); M25.562 Pain in left knee; W19.XXXA Unspecified fall, initial encounter
CPT/HCPCS: 70450; 73552; 73562; 73700; 99285